=== PATIENT | female | born 1970 | race Caucasian/White ===

== ENCOUNTER → 2020-06-23 11:02 | Outpatient (CLI) | payer OTHER, SELFPAY ==
[2020-06-23 12:19] LABS: Alanine Aminotransferase 41 IU/L (<35); Albumin 4.6 g/dL (3.5-5.0); Albumin Globulin Ratio 1.4 (1.0-2.8); Alkaline Phosphatase 85 U/L (38-126); Aspartate Aminotransferase 36 IU/L (14-36); BUN Creatinine Ratio 23.2 (6-22); Bilirubin Total 0.5 mg/dL (0.2-1.3); Blood Urea Nitrogen 16 mg/dL (7-17); Calcium 10.2 mg/dL (8.4-10.2); Carbon Dioxide 29 mmol/L (22-32); Chloride 102 mmol/L (98-107); Cholesterol 259 mg/dL (140-199); Estimated Glomerular Filt Rate > 60.0 mL/min (>60); Globulin 3.4 g/dL (1.7-4.1); Glucose 94 mg/dL (70-100); HDL Cholesterol 62 mg/dL (40-60); HEMOLYSIS < 15 (0-50); LDL Cholesterol Calculated 170 mg/dL (<100); Potassium 4.1 mmol/L (3.4-5.1); Sodium 137 mmol/L (137-145); Triglycerides 136 mg/dL (35-150)
[2020-06-23 12:32] LABS: Vitamin D 25 Hydroxy (D3) 66.8 ng/mL (30.0-100.0)
[2020-06-23 12:34] LABS: Free T4, Direct Thyroxine 1.05 ng/dL (0.78-2.19)
[2020-06-23 12:48] LABS: Thyroid Stimulating Hormone 3.62 uIU/mL (0.47-4.68)
== END ==
PROVIDERS: PCP Registered Nurse; Referring Provider Registered Nurse; Visit Provider Registered Nurse
DX: Z00.00 Encounter for general adult medical examination without abnormal findings (principal); E78.5 Hyperlipidemia, unspecified; E03.9 Hypothyroidism, unspecified; E55.9 Vitamin D deficiency, unspecified
CPT/HCPCS: 36415; 80053; 80061; 82306; 84439; 84443

== ENCOUNTER → 2022-07-09 11:02 | Outpatient (CLI) | payer OTHER, SELFPAY ==
--- NOTE | 2022-07-09 11:04 | DI.MRI.S_ITS ---
PROCEDURE: MR WRIST RT WO CON INDICATIONS: Bilateral wrist pain, refractory to PT TECHNIQUE: Noncontrast coronal proton density fast spin echo and T2 fast spin echo with fat saturation; coronal 3-D gradient echo, axial T1 spin echo and T2 fast spin echo with fat saturation, sagittal T1 spin echo through the wrist. COMPARISON: None. FINDINGS: Image quality: Excellent. Bones and cartilage: The carpal bones are normally aligned. No bone marrow contusions or fractures. No evidence for avascular necrosis. Mild degenerative changes at the 1st carpometacarpal joint. Carpal ligaments: The scapholunate and lunotriquetral ligaments appear intact. On sagittal images, the pisohamate ligament appears intact. Triangular fibrocartilage complex: Mildly increased signal at the ulnar foveal attachment of the triangular fibrocartilage is suspicious for partial tearing. No definite full-thickness tear. No significant distal radioulnar joint effusion. Tendons and soft tissues: The carpal tunnel structures appear normal, including the median nerve. The ulnar nerve appears normal within Guyon's canal. Mild extensor carpi ulnaris tendinosis and tenosynovitis. Mild tendinosis of the first extensor compartment tendons. Small amount of fluid within the extensor digitorum tendon sheaths is suspicious for mild tenosynovitis. The remaining extensor tendon compartments demonstrate normal morphology, without pathologic tendon sheath fluid. 5 mm ganglion cyst is seen along the volar aspect of the radiocarpal joint. IMPRESSION: 1. Partial tearing of the ulnar foveal attachment of the triangular fibrocartilage. No definite full-thickness tear is seen. 2. Mild tendinosis and tenosynovitis of the extensor carpi ulnaris tendon. 3. Mild tenosynovitis of the extensor digitorum tendons in the 4th extensor compartment. 4. Mild tendinosis of the extensor pollicis brevis and abductor pollicis longus tendons. Approved by: Adilson Hernandez M.D. on 07/09/2022 at 14:32
== END ==
PROVIDERS: PCP Nurse Practitioner; Referring Provider Nurse Practitioner; Visit Provider Nurse Practitioner
DX: S63.591A Other specified sprain of right wrist, initial encounter (principal); M65.831 Other synovitis and tenosynovitis, right forearm; M25.531 Pain in right wrist; M25.532 Pain in left wrist
CPT/HCPCS: 73221

== ENCOUNTER → 2022-12-02 12:05 | Outpatient (CLI) | payer OTHER, SELFPAY ==
[2022-12-02 13:35] LABS: Add Manual Diff / Slide Review NO; Basophils Absolute Auto 0 /uL (0-100); Basophils Percent Auto 0.3 % (0-2); Eosinophils Absolute Auto 100 /uL (0-450); Eosinophils Percent Auto 1.4 % (2-4); Hematocrit 47.4 % (36-46); Hemoglobin 16.2 g/dL (12.0-16.0); Lymphocytes Absolute Auto 1400 /uL (1100-4500); Lymphocytes Percent Auto 14.9 % (25-40); Mean Corpuscular HGB Conc 34.3 % (30-36); Mean Corpuscular Hemoglobin 34.2 PG (26-34); Monocytes Absolute Auto 900 /uL (0-900); Monocytes Percent Auto 9.1 % (3-14); Neutrophils Absolute Auto 7000 /uL (1500-7000); Neutrophils Percent Auto 74.3 % (50-75); Platelet Count 185 X10^3/uL (150-400); Red Blood Cell Count 4.74 X10^6/uL (4.0-5.2); Red Cell Distribution Width 13.4 % (11.6-14.8); White Blood Cell Count 9.4 X10^3/uL (4.5-11.0)
[2022-12-02 13:45] LABS: Alanine Aminotransferase 35 IU/L (<35); Albumin 4.4 g/dL (3.5-5.0); Albumin Globulin Ratio 1.3 (1.0-2.8); Alkaline Phosphatase 82 U/L (38-126); Aspartate Aminotransferase 35 IU/L (14-36); BUN Creatinine Ratio 37.9 (6-22); Bilirubin Total 0.7 mg/dL (0.2-1.3); Blood Urea Nitrogen 25 mg/dL (7-17); Calcium 10.1 mg/dL (8.4-10.2); Carbon Dioxide 30 mmol/L (22-32); Chloride 100 mmol/L (98-107); Cholesterol 240 mg/dL (140-199); Estimated Glomerular Filt Rate > 60 mL/min (>60); Globulin 3.4 g/dL (1.7-4.1); Glucose 107 mg/dL (70-100); HDL Cholesterol 99 mg/dL (40-60); HEMOLYSIS < 15 (0-50); LDL Cholesterol Calculated 115 mg/dL (<100); Sodium 135 mmol/L (137-145); Total Protein 7.8 g/dL (6.3-8.2); Triglycerides 130 mg/dL (35-150); Uric Acid 3.9 mg/dL (2.5-6.2)
[2022-12-02 14:13] LABS: Thyroid Stimulating Hormone 3.09 uIU/mL (0.47-4.68)
[2022-12-02 15:24] LABS: Microalbumin Urine Random 6.3 mg/dL (0-1.6)
== END ==
PROVIDERS: PCP Nurse Practitioner; Referring Provider Nurse Practitioner; Visit Provider Nurse Practitioner
DX: Z00.00 Encounter for general adult medical examination without abnormal findings (principal); M25.531 Pain in right wrist
CPT/HCPCS: 36415; 80053; 80061; 82043; 82570; 84439; 84443; 84481; 84550; 85025

== ENCOUNTER → 2022-12-14 10:16 | Outpatient (CLI) | payer OTHER, SELFPAY ==
--- NOTE | 2022-12-14 10:17 | DI.MG.S_ITS ---
BILATERAL DIGITAL SCREENING MAMMOGRAM 3D/2D WITH CAD: 12/14/2022 CLINICAL: Routine screening. Default Baseline exam. Additional films were requested but not obtained. Both breasts are heterogeneously dense, which may obscure small masses (category c / 51-75% glandular tissue). Current study was also evaluated with a Computer Aided Detection (CAD) system. No significant masses, calcifications, or other findings are seen in either breast. IMPRESSION: NEGATIVE There is no mammographic evidence of malignancy. A 1 year screening mammogram is recommended. Based on the Tyrer Cuzick model (a risk assessment model) the patient's lifetime risk is 13.1% and her 10 year risk is 3.8%. According to the ACR, ACS, and NCCN guidelines, an annual breast MRI exam along with mammogram is recommended if the patient's lifetime risk is 20% or greater. This exam was interpreted at Station ID: [id number]. NOTE: For mammograms, a report in lay terms will be sent to the patient. Approximately 15% of breast malignancies will not be visualized mammographically. In the management of a palpable breast mass, a negative mammogram must not discourage biopsy of a clinically suspicious lesion. Electronically Signed By: Titi [email or web address]:12/16/2022 07:23:20 letter sent: Normal Exam ACR BI-RADS Category 1: Negative [id number]
== END ==
PROVIDERS: PCP Nurse Practitioner; Referring Provider Nurse Practitioner; Visit Provider Nurse Practitioner
DX: Z12.31 Encounter for screening mammogram for malignant neoplasm of breast (principal)
CPT/HCPCS: 77063; 77067

== ENCOUNTER → 2022-12-21 10:41 | Outpatient (CLI) | payer OTHER, SELFPAY ==
--- NOTE | 2022-12-21 10:42 | DI.MRI.S_ITS ---
PROCEDURE: MR LUMBAR SPINE WO CON INDICATIONS: worsening lower back pain with sciatica TECHNIQUE: Noncontrast sagittal T1 spin echo and T2 fast echo, sagittal STIR, and T2 fast spin echo through the lumbar spine. In cases with scoliosis, additional coronal T2 fast spin echo may be performed. COMPARISON: None. FINDINGS: Image quality: Excellent. Alignment and Curvature: Grade 1 anterolisthesis L4 on L5 secondary to pars defects. Slight leftward curvature of the lumbar spine. Bone Marrow: A reactive bone marrow changes about the L4-5 disc space. Spinal Cord: Conus medullaris terminates at the L1 level. Visualized cord demonstrates normal signal and size. Paraspinous Soft Tissues: No paravertebral masses. T12-L1: Normal appearance. L1-L2: Normal in appearance. L2-L3: Ligamentum flavum hypertrophy, mild facet hypertrophy, epidural lipomatosis. Very mild broad-based disc bulge. Mild bilateral neural foraminal narrowing. L3-L4: Ligamentum flavum hypertrophy and mild facet hypertrophy. Broad-based disc bulge. Mild bilateral neural foraminal narrowing. L4-L5: Posterior asymmetric disc bulge, ligamentum flavum hypertrophy, mild epidural lipomatosis. Severe right and moderate to severe left neural foraminal narrowing. L5-S1: Posterior asymmetric disc bulge with superimposed annular fissure. Mild ligamentum flavum hypertrophy. Mild facet hypertrophy. Mild left neural foraminal narrowing. IMPRESSION: Grade 1 anterolisthesis of L4 on L5 secondary to pars defects. Associated severe right and moderate to severe left neural foraminal narrowing. Multilevel degenerative disc disease, as above. Dictated by: Channing Garcia M.D. on 12/23/2022 at 9:21 Approved by: Channing Garcia M.D. on 12/23/2022 at 9:32
== END ==
PROVIDERS: PCP Nurse Practitioner; Referring Provider Nurse Practitioner; Visit Provider Nurse Practitioner
DX: M43.16 Spondylolisthesis, lumbar region (principal); M48.061 Spinal stenosis, lumbar region without neurogenic claudication; M51.36 Other intervertebral disc degeneration, lumbar region; M51.37 Other intervertebral disc degeneration, lumbosacral region; M54.50 Low back pain, unspecified; M79.606 Pain in leg, unspecified
CPT/HCPCS: 72148

== ENCOUNTER → 2023-01-14 16:18 | Outpatient (CLI) | payer OTHER, SELFPAY ==
[2023-01-14 18:26] LABS: Add Manual Diff / Slide Review NO; Basophils Absolute Auto 0 /uL (0-100); Basophils Percent Auto 0.3 % (0-2); Eosinophils Absolute Auto 300 /uL (0-450); Eosinophils Percent Auto 3.2 % (2-4); Hematocrit 45.8 % (36-46); Hemoglobin 15.8 g/dL (12.0-16.0); Lymphocytes Absolute Auto 1700 /uL (1100-4500); Lymphocytes Percent Auto 19.3 % (25-40); Mean Corpuscular HGB Conc 34.4 % (30-36); Mean Corpuscular Hemoglobin 34.1 PG (26-34); Mean Corpuscular Volume 99.3 fL (80-100); Monocytes Absolute Auto 900 /uL (0-900); Monocytes Percent Auto 10.4 % (3-14); Neutrophils Absolute Auto 5800 /uL (1500-7000); Neutrophils Percent Auto 66.8 % (50-75); Platelet Count 198 X10^3/uL (150-400); Red Blood Cell Count 4.62 X10^6/uL (4.0-5.2); Red Cell Distribution Width 13.5 % (11.6-14.8); White Blood Cell Count 8.7 X10^3/uL (4.5-11.0)
[2023-01-14 19:01] LABS: BUN Creatinine Ratio 23.9 (6-22); Blood Urea Nitrogen 17 mg/dL (7-17); Calcium 9.6 mg/dL (8.4-10.2); Carbon Dioxide 33 mmol/L (22-32); Chloride 103 mmol/L (98-107); Estimated Glomerular Filt Rate > 60 mL/min (>60); Glucose 76 mg/dL (70-100); HEMOLYSIS < 15 (0-50); Sodium 139 mmol/L (137-145)
[2023-01-15 03:36] LABS: Labcorp Hemoglobin (Hb) A1c 5.3 % (4.8-5.6)
== END ==
PROVIDERS: PCP Nurse Practitioner; Referring Provider Orthopaedic Surgery Orthopaedic Surgery of the Spine; Visit Provider Orthopaedic Surgery Orthopaedic Surgery of the Spine
DX: Z01.818 Encounter for other preprocedural examination (principal); R73.9 Hyperglycemia, unspecified; Z01.812 Encounter for preprocedural laboratory examination
CPT/HCPCS: 36415; 80048; 83036; 85025; 93005; 93010

== ENCOUNTER 2023-02-21 08:05 | Inpatient (IN) | payer OTHER, SELFPAY ==
[2023-02-07 08:17] VITALS: BMI 21.0
[2023-02-21] VITALS (14 sets, daily range): BP systolic 100–155; BP diastolic 59–99; PULSE 91–127; RESP 9–20; TEMP 36.3–37; O2SAT 93–99; BMI 21.0
--- NOTE | 2023-02-21 | DI.RAD.S_ITS ---
PROCEDURE: XR LUMBAR SPINE 2-3V INDICATIONS: L4-5 TLIF TECHNIQUE: 2 intraoperative views of the lumbar spine were acquired. COMPARISON: [facility], MR, MR LUMBAR SPINE WO CON, 12/21/2022, 10:52. FINDINGS: L4-L5 pedicle screw fixation with intervertebral body spacer. Hardware projects in the expected location. Improved anterolisthesis of L4 on L5. IMPRESSION: Intraoperative guidance provided. Dictated by: Mason Marte M.D. on 02/21/2023 at 14:53 Approved by: Mason Marte M.D. on 02/21/2023 at 14:55
[2023-02-21] MEDS: LACTATED RINGERS 1,000 ML 100 ML IV (08:23)
--- NOTE | 2023-02-21 09:03 | PM.PREOP ---
Pre-operative Note COVID-19 Criteria for continued procedure: Expected advancement of disease process, Possibility delay results in more complex future surgery or treatment, Increased loss of function, Continuing or worsening of significant or severe pain, Deterioration of the patient's condition or overall health and Delay expected to result in less-positive ultimate med/surg outcome Interval Note History & Physical reviewed/Exam performed by Physician: Yes Changes to H&P: No
[2023-02-21] MEDS: CEFAZOLIN 2 GM/100 ML PREMIX 100 ML IV ×2 (09:50→18:03)
--- NOTE | 2023-02-21 10:09 | SUR.OPER ---
Prone on spine table, head in foam head support, padded chest and pelvic supports, gel pad at knees, lower legs supported by pillows; nipples, genitalia and toes free of pressure, arms secured on foam padded arm boards at <90 degrees abduction. Tape over blanket at thigh secured to table.
[2023-02-21] MEDS: BUPIVACAINE 0.25% (PF) 60 ML, EPINEPHrine 0.15 MG INJ (10:34)
[2023-02-21] MEDS: BUPIVACAINE LIPOSOME 266 MG/20 ML VIAL INJ (10:35)
--- NOTE | 2023-02-21 12:11 | P.OP_ITS ---
Operative Date/Time/Diagnoses Date of procedure: 02/21/23 Time of procedure: 10:30 Pre-op diagnosis: 1. L4-5 spondylolisthesis 2. L4-5 spinal stenosis with radiculopathy Post-op diagnosis: same Procedure & Clinicians Procedure: 1. L4-5 Postero-lateral and posterior interbody fusion 2. L4-5 interbody cage placement. 3. L4-5 decompressive laminectomy with bilateral facetecomies 4. L4-5 Posterior non-segmental instrumentation 5. Decker of bone marrow from iliac crest 6. Utilization of microsurgical technique and operating microscope Same procedure as scheduled: Yes Indications: Patient has been having chronic back pain and worsening lumbar radiculopathy. Patient failed multiple conservative management with worsening pain weakness and numbness in her lower extremity. Patient has been having difficulty performing activity of daily living. After discussing risks benefits of treatment options, patient elected proceed with surgery. Surgeon: Meet Redmond Manager Report: Peace Foley Click Yes if Unassisted: No Anesthesia Type: General Operative Notes Closure Type: primary Specimen(s): none sent Prosthetic devices, grafts, tissues, transplants, or devices: Globus revolve screws, Rise cage Estimated Blood Loss (mL): 50 Blood products transfused: none Procedure in detail: Patient was seen in the preoperative area. Risks and benefits of the surgery was discussed with the patient. Informed consent was obtained from the patient and placed in the chart. Surgical site was marked. Patient was taken to the operative room. General anesthesia was administered. Prophylactic antibiotic was given to the patient less than 30 min before the incision was made. Patient was placed into a prone position on the Jax table. Patient's back was then prepped and draped in the sterile fashion. Time-out was performed at this time. Using AP and lateral C-arm imaging the interval between L4-5 was identified and marked on patient's back. A 2 inch incision 2 in from midline was made on the right side first. The fascia was incised in line with skin incision. Globus MARS retractors was placed inside the incision and docked onto the L4 lamina. Using microsurgical technique and operating microscope, a L4 laminectomy and L4- 5 facetectomy was performed using a Kerrison rongeur. The laminectomy and facetectomy was performed in order to decompress patient's cauda equina as well as the nerve roots exiting at the L4-5 level. The disc space at L4-5 was identified. And a total diskectomy was performed at L4-5 level. The endplates were decorticated using a rasp and shaver. The total diskectomy and decortication was performed at L4-5 level in order to to accomplish a L4-5 fusion. The local bone from the laminectomy and facetectomy was saved for local bone grafting. After the total diskectomy and decortication was completed, Trifecta bone graft material was combined with local bone that was harvested earlier. At this time, a separate skin is incision was made over the iliac crest. A Jamshidi needle was inserted into the iliac crest through a separate skin incision. 5 cc of bone marrow aspiration was obtained through the separate skin incision using a Jamshidi needle from the iliac crest. The bone marrow aspiration was combined with local bone and the Trifecta bone grafting material. The bone grafting material was placed into the L4-5 interbody space along with a expandable cage. The cage was expanded to its maximum height using the torque limiting screwdriver. At this time a mirror image incision was made on the left side. The fascia was incised in line with the skin incision. Globus MARS retractor was inserted and docked onto the L4-5 posterolateral gutter. Using the power drill, posterior- lateral decortication was performed at L4-5 level until bleeding cortical bone was identified. The remaining bone grafting material was placed into the L4-5 posterior lateral gutter he order to accomplish posterolateral fusion at the L4- 5 level. Using the double C-arm technique, pedicle screws were placed into the L4-5 pedicles bilaterally. This was done by placing the Jamshidi needle into the pedicles, then placing the guidewires over the Jamshidi needle, and finally placing the cannulated screws over the guidewires bilaterally. After the pedicle screws were placed, 2 titanium rods was locked into the heads of the pedicle screws using locking caps and torque limiting screwdriver. With threaded reducers were used to reduce the patient's spondylolisthesis and maintained using the hardware placed in the patient's L4 and L5 level. After all the hardware was placed, and confirmed with AP and lateral C-arm imaging, the wound was then irrigated with sterile normal saline and packed with Ray-Walter gauze for 3 min to accomplish hemostasis. After the gauze was removed the deep fascia was closed with #1 Vicryl suture. The subcutaneous layer was closed with 2-0 Vicryl. The skin was closed with skin brianna. Patient tolerated the procedure well. There were no complications. The Operation could not have been safely performed without compromising the technical result or length of the procedure, without the assistance of a skilled operating room surgical technician. The operating room surgical technician was medically necessary for proper positioning, retraction and manipulation of instruments, proper exposure, surgical preparation, and manipulation of tissue. Complications: none Post-operative Condition: stable Disposition: PACU Plan for aftercare: Admit to inpatient hospital
[2023-02-21] MEDS: LORazepam 2 MG/ML INJ 0.25 MG IV ×2 (12:29→12:44)
[2023-02-21] MEDS: HYDROMORPHONE 1 MG INJ IV ×2 (12:32→12:39)
[2023-02-21] MEDS: hydrOXYzine 50 MG/ML INJ 25 MG IM (12:35)
[2023-02-21] MEDS: fentaNYL 100 MCG/2 ML INJ IV ×2 (12:51→13:00)
--- NOTE | 2023-02-21 13:16 | SUR.PHASEI ---
Report called to
--- NOTE | 2023-02-21 13:29 | SUR.PHASEI ---
Patient transferred to the floor by TRICIA Michel with her belongings bag.
--- NOTE | 2023-02-21 14:21 | OT.IP.EVAL ---
Current Diagnoses Spondylolisthesis, lumbar region (02/21/23) Spinal stenosis, lumbosacral region (02/21/23) Surgery Performed Operation Date: 02/21/23 09:45 Actual Procedures p L4-5 TLIF - Meet Redmond MD Past Medical History (Last Reviewed 01/08/23 @ 08:23 by SUSY Wilson) Anxiety (~2009) Bilateral wrist pain Bulging lumbar disc Chronic back pain (~2012) Colon polyps (~2019) Depression (~2011) Epidural lipomatosis Foot pain (~2015) Foraminal stenosis of lumbar region Fractures (~2018) Hyperlipidemia Hypertrophy of ligamentum flavum Hypothyroidism (acquired) (~2017) Neural foraminal stenosis of lumbar spine Shoulder pain (~2019) SVT (supraventricular tachycardia) (~2016) Vitamin D deficiency Surgical History (Last Reviewed 01/08/23 @ 08:23 by SUSY Wilson) Anesthesia History of ankle surgery (~2018) History of cardiac radiofrequency ablation (~2018) Occupational Therapy Inpatient Evaluation/Re-Eval M1 PT/OT-IP Prior Functional Status Start: 02/21/23 14:28 Freq: NEEDED Status: Active Protocol: Document 02/21/23 13:45 [facility] (Rec: 02/21/23 14:51 [facility] [id number]) Medical Review Prior Functional Status Communication Independent. Mobility and Gait Pt states had difficulty to get out of bed and with sitting but able to walk without a device. Activities of Daily Living and IADL's Pt states had pain for ADL and IADL needs. Social History Household Members spouse Living Arrangements Mobile home Number of Floors (Floors) One Floor Number of Stairs To Enter/Railing? 3 steps with narrow bilateral rails. Home Environment Standard Height Toilet,Walk in Shower,Tub/Shower Home Equipment Four Wheel Walker,Straight Cane,Shower Seat with Backrest Additional Social History Comment Pt to be around to assist her. M2 OT-IP Current Condition Start: 02/21/23 14:28 Freq: Status: Active Protocol: Document 02/21/23 13:45 [facility] (Rec: 02/21/23 14:51 [facility] [id number]) Occupational Therapy Current Condition Current Condition Evaluation Date 02/21/23 Treatment Diagnosis S/P L4-5 TLIF Diagnosis Onset Date 02/21/23 Post Operative Precautions Lumbar Precautions Log Roll,No Twisting,Limit Bending,Lifting Restriction of 10 lbs,Gait Belt above Incisional Area M3 OT- IP Subjective and Pain Start: 02/21/23 14:28 Freq: Status: Active Protocol: Document 02/21/23 13:45 [facility] (Rec: 02/21/23 14:51 [facility] [id number]) OT- Subjective Occupational Therapy Visit Type Type Initial Evaluation Visit Start Time 13:43 Visit Stop Time 14:21 Total Visit Minutes 38 Occupational Therapy Visit Comments Patient Comments Pt wanting to use the BSC. Patient/Caregiver Goals To go home. OT Pain Assessment Pain When Pain Assessed At Rest Pain Present Pain Present Pain Reported Location back Intensity 9 Scale Used Numeric (0 - 10) M4 OT- IP ADL's Start: 02/21/23 14:28 Freq: Status: Active Protocol: Document 02/21/23 13:45 [facility] (Rec: 02/21/23 14:51 [facility] [id number]) OT RDC-Mpdc-Pkxomvc Comments OT Self-Feeding Comments No issues anticipated. OT ADL-Grooming Comments OT Grooming Comments Not performed. OT ADL-Oral Care Comments Oral Care Comments NOt performed. Educated best to hinge at her hips or just spit into a cup to best follow her back precautions. OT ADL-Dressing General Eval Lower Body Dressing Ability Maximum Assistance Areas Needing Assistance Socks Comments OT Dressing Comments Educated for need for assist or use of LB dressing equipment. OT ADL-Toileting General Evaluation Toileting Ability Standby Assistance,Minimal Assistance Comments OT Toileting Comments Pt is very tall and may benefit from RTS/BSC. Pt able to comfortably wipe and follow her precautions while sitting on the BSC. At this time as pt a little whoozy and would need CGA if standing to do LB dressing needs. OT ADL-Bathing Comments OT Bathing Comments Pt states has a built in seat in the shower. Pt may benefit from a shower chair as pt is very tall. M5 OT- IP IADL's Start: 02/21/23 14:28 Freq: Status: Active Protocol: Document 02/21/23 13:45 [facility] (Rec: 02/21/23 14:51 [facility] [id number]) OT-Instrumental Activities of Daily Living Deficits IADL Deficits Identified Deficits Home Safety Awareness Awareness of Need for Assistance at Home Good Awareness Home Safety Comments Pt is a little groggy and to have her assist her at home. M6 OT- IP Functional Cognition Start: 02/21/23 14:28 Freq: Status: Active Protocol: Document 02/21/23 13:45 [facility] (Rec: 02/21/23 14:51 [facility] [id number]) Cognitive Factors Limiting Selfcare Function Cognitive Ability Level of Alertness Alert,Drowsy Patient Orientation Name,Place,Situation Attention Span Ability Capable of Focused Attention, Capable of Sustained Attention Ability to Follow Commands Able to Follow One Step Commands Cognitive Comments Cognitive Assessment Comments Pt able to states and follow her back precautions for ADl and mobility needs. VC to push up from surfaces when coming to stand. OT- Vision and Hearing OT- Hearing Assessment OT- Hearing Assessment WFL OT- Vision Assessment Visual Acuity Glasses For Reading Visual Attentiveness WFL Occular Pursuits WFL M7 OT- IP Mobility and Balance Start: 02/21/23 14:28 Freq: Status: Active Protocol: Document 02/21/23 13:45 [facility] (Rec: 02/21/23 14:51 [facility] [id number]) OT- Bed Mobility Assessment Rolling Type of Rolling Roll to Left Level of Assistance Standby Assistance Supine to Sit Supine to Sit Assist Standby Assistance Sit to Supine Sit to Supine Assist Contact Guard Assistance Scooting Scooting to Edge of Bed Standby Assistance OT-Transfer Assessment Sit to and From Stand Sit to and from Stand Contact Guard Assistance Transfers Transfer Ability Contact Guard Assistance Technique Transfer Destination Bed,Bedside Commode Transfer Technique Stand Step Pivot Devices Transfer Assistive Devices Gait Belt,Front Wheeled Walker Comments Mobility Comments Pt SBA cues to educated on log rolling and IAN to help get her feet back into bed. CGA to stand to the FWW and able to transfer to the BSC. Pt complaining of being whoozy when sitting up to the edge of the bed. BP remained the same form supine and sitting. O2 at 96% on RA. OT- Balance Assessment Sitting Balance and Reactions Static Sitting Balance Ability Good Dynamic Sitting Balance Ability Fair Standing Balance and Reactions Static Standing Balance Ability Fair Dynamic Standing Balance Ability Fair M8 OT- IP Objective Assessments Start: 02/21/23 14:28 Freq: Status: Active Protocol: Document 02/21/23 13:45 [facility] (Rec: 02/21/23 14:51 [facility] [id number]) OT-Muscle Tone Assessment Muscle Tone WNL Yes M9 OT- IP Assessment and Plan Start: 02/21/23 14:28 Freq: Status: Active Protocol: Document 02/21/23 13:45 [facility] (Rec: 02/21/23 14:51 [facility] [id number]) OT Summary Assessment and Plan Potential Rehabilitation Potential Excellent Analytic Complexity at Evaluation Low Summary OT Impairments Pain,Strength,Balance, Functional Mobility,Grooming, Dressing,Toileting,Bathing, Toilet Transfers,Shower Transfers Progress Towards Goals Progressing Toward Goals Assessment Summary Pt low complexity and main barriers are pain, steps and coming up to stand from lower surfaces. Pt has a supportive to be able to assist her at home. Pt's daughter to be bringing her a 4ww, however at this time pt may need a FWW. Pt to go home when medically stable. Goals Grooming Goal Independent Dressing Goal Independent Toileting Goal Independent Bathing Goal Independent Toilet Transfer Goal Independent Shower Transfer Goal Independent Patient/Caregiver Education Goal Demonstrate Post-Op Precautions,Caregiver Independent Assisting Patient Days to Meet Goals 5 Frequency of Treatment Frequency Of Treatment Once a Day Treatment Plan OT Treatment Plan ADL Training,Functional Mobility,Patient/Family Education,Discharge Planning Discharge Recommendations OT Discharge Recommendations Home with Assistance Home Equipment Needs FWW?, shower chair, RTS versus BSC Transportation Needs at Discharge Private Vehicle
[2023-02-21] MEDS: OXYCODONE IR 10 MG TABLET PO ×3 (14:29→21:26)
[2023-02-21] MEDS: hydrOXYzine pamoate 25 MG CAPSULE PO (14:29)
[2023-02-21] MEDS: LACTATED RINGERS 1,000 ML 125 ML IV (14:30)
--- NOTE | 2023-02-21 15:10 | PT.IIE ---
Current Diagnoses Spondylolisthesis, lumbar region (02/21/23) Spinal stenosis, lumbosacral region (02/21/23) Surgery Performed Operation Date: 02/21/23 09:45 Actual Procedures p L4-5 TLIF - Meet Redmond MD Surgical History (Last Reviewed 01/08/23 @ 08:23 by SUSY Wilson) Anesthesia History of ankle surgery (~2019) History of cardiac radiofrequency ablation (~2018) Medical History (Last Reviewed 01/08/23 @ 08:23 by SUSY Wilson) Anxiety (~2009) Bilateral wrist pain Bulging lumbar disc Chronic back pain (~2012) Colon polyps (~2018) Depression (~2011) Epidural lipomatosis Foot pain (~2015) Foraminal stenosis of lumbar region Fractures (~2017) Hyperlipidemia Hypertrophy of ligamentum flavum Hypothyroidism (acquired) (~2017) Neural foraminal stenosis of lumbar spine Shoulder pain (~2019) SVT (supraventricular tachycardia) (~2016) Vitamin D deficiency Physical Therapy Inpatient Evaluation/Re-Eval M1 PT/OT-IP Prior Functional Status Start: 02/21/23 15:50 Freq: NEEDED Status: Active Protocol: Document 02/21/23 15:10 AB (Rec: 02/21/23 16:07 AB [email or web address]) Medical Review Prior Functional Status Medical History Reviewed Yes Communication able to make needs known Mobility and Gait pt stated that she is independent with all mobilities and ambulation without AD Activities of Daily Living and IADL's per OT note: Pt states had pain for ADL and IADL needs. Social History Household Members spouse Living Arrangements Mobile home Number of Floors (Floors) One Floor Number of Stairs To Enter/Railing? 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 Additional Social History Comment pt works in a daycare spouse Tanner will be able to assist pt M2 PT-IP Current Condition Start: 02/21/23 15:50 Freq: NEEDED Status: Active Protocol: Document 02/21/23 15:10 AB (Rec: 02/21/23 16:07 AB [email or web address]) Physical Therapy Current Condition Current Condition Evaluation Date 02/21/23 Treatment Diagnosis s/p L4-5 TLIF; difficulty in walking Onset Date 02/21/23 M3 PT-IP Subjective Start: 02/21/23 15:50 Freq: NEEDED Status: Active Protocol: Document 02/21/23 15:10 AB (Rec: 02/21/23 16:07 [email or web address]) Subjective Physical Therapy Visit Type Type Initial Evaluation Visit Start Time 15:10 Visit Stop Time 15:45 Total Visit Minutes 35 Number of BACON SLICER Visits 0 Physical Therapy Visit Comments Patient Comments agreeable to do PT Therapy Pain Assessment Pain When Pain Assessed At Rest Pain Present Pain Present Pain Reported Location back Intensity 8 Scale Used Numeric (0 - 10) Pain Management Techniques Apply Cold,Distraction, Modification of Treatment,Re- positioning,Timing of Activity with Medications M4 PT-IP Mobility and Gait Start: 02/21/23 15:50 Freq: NEEDED Status: Active Protocol: Document 02/21/23 15:10 AB (Rec: 02/21/23 16:07 [email or web address]) PT-Bed Mobility Assessment Rolling Type of Rolling Log Rolling Level of Assist Standby Assistance Supine to Sit Supine to Sit Standby Assistance Sit to Supine Sit to Supine Standby Assistance PT-Transfer Assessment Sit to and From Stand Sit to and from Stand Contact Guard Assistance, Minimal Assistance,1 Person Assistance,Use of Upper Extremities Equipment Transfer Assistive Device Gait Belt,Front Wheeled Walker Orthotic/Prosthetic Devices or Brace: No Transfers Transfer Destination Toilet Transfer Technique ambulated Transfer Ability Level of Assist Contact Guard Assistance,1 Person Assistance,Use of Upper Extremities Comments Mobility Comments pt supine. spouse arrived in pt's room and confirmed that he can provide 24/7 assist to pt if needed. pt able to recall her precautions and stated that she is aware of log roll bed mobility. BP: 129 /82, O2 sat 94% at RA HR: 101 instructed pt to sit up on EOB . pt initially was trying to get up from a supine position. reminded pt of her log roll bed mobility and completed SBA but with cues. pt able to sit on EOB SBA. completed sit to stand min A and cues and ambulated in room using FWW 20 ft. c/o increase pain with mobility. presents with slow paced gait with heavy UE use on FWW and trunk guarding. pt sat back on EOB and wanting to go back to bed but stated that she has to use the toilet first. initiated caregiver training and educated spouse on how to assist pt using safety belt. pt completed sit to stand with spouse assisting CGA and pt ambulated towards the toilet using FWW CGA. pt required assistance with LE dressing management. pt completed sit to stand from the toilet using grab bar and spouse assisting CGA. pt ambulated from the toilet towards the sink using FWW CGA ~ 20 ft. pt was able to maintain standing SBA to CGA leaning against the counter while completing handwashing. pt ambulated back to the bed using FWW CGA. educated spouse on how to use safety belt/ donning/doffing and spouse was able to don/ doff safety belt on pt. pt completed log roll sit to supine SBA and cues for techniques and safety. positioned pt in bed. call light and table placed within reach. caregiver training set up for tomorrow at 9 am. Gait Assessment Gait Gait Assistance Required: Contact Guard Assist Distance (Feet) 20 Able to Maintain Weight Bearing Status Yes During Gait Assistive Devices Assistive Device Gait Belt,Front Wheeled Walker Orthotic/Prosthetic Devices or Brace: No Gait Deviations General Gait Pattern Decreased Stride Length, Decreased Feet Clearance Factors Limiting Gait Function Factors Limiting Gait Function Decreased Activity Tolerance, Decreased Strength,Limited Range of Motion,Pain,Poor Balance,Poor Safety Awareness PT-Balance Assessment Sitting Balance and Reactions Static Sitting Balance Ability Normal Dynamic Sitting Balance Ability Good Standing Balance and Reactions Static Standing Balance Ability Fair Dynamic Standing Balance Ability Fair Device Used FWW M5 PT-IP Objective Assessments Start: 02/21/23 15:50 Freq: NEEDED Status: Active Protocol: Document 02/21/23 15:10 AB (Rec: 02/21/23 16:07 AB [email or web address]) Orientation Orientation/Cognition Level of Alertness Alert Orientation Name,Place,Situation Language Function Ability No Deficits Noted Safety Awareness Decreased Safety Awareness Memory Description Short Term Impaired Gross Range of Motion Lower Extremity ROM Assessment Within Functional Limits Strength Lower Extremity Strength Assessment Within Functional Limits Coordination Assessment Gross Coordination Gross Coordination WNL Sensation Assessment Sensation Gross Sensation WNL Muscle Tone Muscle Tone WNL Yes M6 PT-IP Treatment Start: 02/21/23 15:50 Freq: NEEDED Status: Active Protocol: Document 02/21/23 15:10 AB (Rec: 02/21/23 16:07 [email or web address]) Physical Therapy Treatment Education Education Provided Precautions,Weight Bearing Status,Safety M7 PT-IP Assessment and Plan Start: 02/21/23 15:50 Freq: NEEDED Status: Active Protocol: Document 02/21/23 15:10 AB (Rec: 02/21/23 16:07 AB [id number]) PT Summary Assessment and Plan Potential Rehabilitation Potential Fair Status of Condition at Evaluation Evolving Summary Impairments Pain,ROM,Strength,Balance, Coordination,Sensation,Tone, Cognition,Bed Mobility, Transfers,Gait,Activity Tolerance Assessment Summary pt is a 52 y/o female with chronic back pain and underwent L4-5 TLIF POD 0. pt requiring CGA to min A with mobility at this time using FWW but requires cues for techniques and safety. pt plans to go home and spouse to assist her. caregiver training set up for tomorrow at 9 am. pt will also have to complete stair climbing training prior to d/c. recommending use of FWW at this time and pt requested for FWW to be dispensed through the hospital. will request for FWW order and dispense on d/c. will continue to assess progress. Goals Bed Mobility Goal Independent Transfer Goal Independent,Front Wheeled Walker Gait Goal Independent,Front Wheel Walker Gait Distance 200 Other Goals up/down 3 steps B rail mod I Days to Meet Goals 5 Frequency of Treatment Frequency Of Treatment Twice a Day Treatment Plan Physical Therapy Treatment Plan Bed Mobility Training,Transfer Training,Gait Training, Therapeutic Exercise,Balance Retraining,Post Op Education, Discharge Planning,Hot or Cold Pack,Neuromuscular Re-ed, Coordination Retraining,Manual Therapy Precautions Lumbar Precautions Log Roll,No Twisting,Limit Bending,Lifting Restriction of 10 lbs,Gait Belt above Incisional Area Recommendations To Nursing Amount of Assist Needed 1 Person Assist Discharge Recommendations PT Discharge Recommendations Home with Assistance Equipment Needed for Home Before FWW Discharge Transportation Needs at Discharge Private Vehicle
[2023-02-21] MEDS: HYDROMORPHONE 0.5 MG INJ IV (16:19)
--- NOTE | 2023-02-21 17:19 | SUR.PHASEI ---
Called Calista Cadena CRNA in OR #[address] Redmond. Received call from Emily CLARKE regarding patients increased agitation with significant history of alcohol use and tobacco use. See order for one time dose of Lorazepam and nictotine patch. Dr Redmond to follow up after out of OR.
[2023-02-21] MEDS: NICOTINE 21 MG PATCH TOP (17:54)
[2023-02-21] MEDS: LORazepam 2 MG/ML INJ 1 MG IV (17:54)
--- NOTE | 2023-02-21 18:15 | PC.NURSE ---
Addendum entered by Radha Jain R.N. 02/21/23 18:39: Pt in own clothing. This RN offered hospital gown. Pt stated, No way. I'm keeping my own clothes on. Original Note: Day shift: Pt requested new RN; this RN overtook care. Pt A&Ox4, agitation present. Up to BSC SBA, pt reporting 8/10 pain in back, muscle spasms, and anxiety. Medication administered as ordered (See MAR). Bed alarm active, pulse oximetry attached and pt oxygenation 94%, VSS. Care ongoing. Will continue to monitor
--- NOTE | 2023-02-21 18:20 | PC.NURSE ---
@ 1645 this RN heard bed alarm in room 204. Immediately went to room to check on pt and found pt trying to get back into bed and throwing blankets around and talking to herself frustratingly. I asked her what happened and pt stated she dropped her water on the floor and tried to clean it up on her own but couldn't. I stated to pt that it was ok that the water fell on the floor and began to grab towels to clean up. Pt continued to talk about her frustration about not being able to be independent and this RN educated pt about safety measures for pt d/t being hooked up to continuous IV fluids, monitoring BP cuff, SCDs and the IV narcotics administered earlier therefore pt would be a high fall risk. Pt was becoming increasingly more agitated while this RN was educating and cleaning the water off the floor, and pt's voice was increasingly becoming louder and angrier in tone. This RN continued to educate and remind pt of safety measures, and pt started yelling at RN about her frustration and this RN raised her voice to pt to educate pt once again about safety measures and pt yelled at RN stating, I want a new nurse! You're fired! I want a new nurse!! This RN finished cleaning water off the floor. Pt was becoming more agitated and stating that RN was not being empathic and no bedside manners. This RN said to pt that they will find another RN for her and that yelling at the RN was disrespectful and inappropriate. Pt continued to yell at RN and demand for another RN. Staff outside the room could hear pt yelling. Float RN, Radha Nick took over care for pt. ornamental iron worker notified of RN change. This RN called OR staff to request a one time dose of Ativan for pt d/t increasing agitation. PLATER APPRENTICE notified MD and obtained new order. Med was administered as well as the new order for nicotine patch since pt's informed RN that pt was more agitated d/t not being able to smoke in the hospital. added more new orders to support pt's anxiety.
[2023-02-21] MEDS: MELATONIN 3 MG TABLET 9 MG PO (21:25)
[2023-02-21] MEDS: DOCUSATE 100 MG CAPSULE PO (21:25)
[2023-02-21] MEDS: CYANOCOBALAMIN (VITAMIN B-12) 500 MCG TABLET 1000 MCG PO (21:25)
[2023-02-21] MEDS: SENNOSIDES 8.6 MG TABLET 17.2 MG PO (21:25)
[2023-02-21] MEDS: diazePAM 5 MG TABLET PO (21:26)
[2023-02-22] VITALS (7 sets, daily range): BP systolic 113–134; BP diastolic 77–102; PULSE 76–88; RESP 16–18; TEMP 36.2–37.2; O2SAT 94–96
[2023-02-22] MEDS: OXYCODONE IR 10 MG TABLET PO ×7 (01:11→23:03)
[2023-02-22] MEDS: CEFAZOLIN 2 GM/100 ML PREMIX 100 ML IV (01:11)
[2023-02-22] MEDS: PANTOPRAZOLE DR 20 MG TABLET PO (05:22)
[2023-02-22] MEDS: HYDROMORPHONE 0.5 MG INJ IV ×5 (05:34→21:19)
[2023-02-22] MEDS: DOCUSATE 100 MG CAPSULE PO ×2 (08:20→21:19)
[2023-02-22] MEDS: polyethylene glycoL 3350 17 GM POWD.PACK PO (08:20)
[2023-02-22] MEDS: NICOTINE 21 MG PATCH TOP (08:20)
--- NOTE | 2023-02-22 08:58 | PT.IPTN ---
Current Diagnoses Spondylolisthesis, lumbar region (02/21/23) Spinal stenosis, lumbosacral region (02/21/23) Surgery Performed Operation Date: 02/21/23 09:45 Actual Procedures p L4-5 TLIF - Meet Redmond MD Physical Therapy Treatment Note M2 PT-IP Current Condition Start: 02/21/23 15:50 Freq: NEEDED Status: Active Protocol: Document 02/21/23 15:10 AB (Rec: 02/21/23 16:07 AB [email or web address]) Physical Therapy Current Condition Current Condition Evaluation Date 02/21/23 Treatment Diagnosis s/p L4-5 TLIF; difficulty in walking Onset Date 02/21/23 M3 PT-IP Subjective Start: 02/21/23 15:50 Freq: NEEDED Status: Active Protocol: Document 02/22/23 09:20 TS (Rec: 02/22/23 09:39 TS [id number]) Subjective Physical Therapy Visit Type Type Treatment Note Visit Start Time 08:58 Visit Stop Time 09:18 Total Visit Minutes 20 Notes Spouse present for caregiver training Number of ARTIFICIAL PEARL MAKER Visits 1 Physical Therapy Visit Comments Patient Comments Pt found resting in bed, reports having high pain, somewhat emotional and somewhat tearful. Therapy Pain Assessment Pain When Pain Assessed At Rest Pain Present Pain Present Pain Reported M4 PT-IP Mobility and Gait Start: 02/21/23 15:50 Freq: NEEDED Status: Active Protocol: Document 02/22/23 09:20 TS (Rec: 02/22/23 09:39 TS [id number]) PT-Bed Mobility Assessment Rolling Type of Rolling Log Rolling Level of Assist Standby Assistance Supine to Sit Supine to Sit Standby Assistance Sit to Supine Sit to Supine Standby Assistance PT-Transfer Assessment Sit to and From Stand Sit to and from Stand Standby Assistance,Use of Upper Extremities Equipment Transfer Assistive Device Gait Belt,Front Wheeled Walker Orthotic/Prosthetic Devices or Brace: No Comments Mobility Comments Pt recalled 3/3 spinal precautions prior to mobility. She performed logroll SBA and supine to sit SBA with BUE support and good awareness of her spinal precautions, spouse was educated on handplacement to assist pt if she needs. Spouse was instructed in and performed donning of gait belt . Sit to stand w/FWW SBA with BUE support on FWW to come into stanidng. Pt ambulated ~ 10' to restroom SBA w/FWW and slow emerging step thru gait. Sit to stand form toilet SBA, pt could don pants on own. She ambulated in hallway ~125' SBa with continued slow paced emerging step thru gait, reports some burning pain in R hip. She performed steps x3 with spouse CGA and B handrails ascending, SBA when descending, spouse was educated on proper handplacement on gait belt. Pt ambulated back to room, performed sit to supine SBA with good logroll technique. Pt was left back in bed with call light nearby, spouse in room, all needs met. Gait Assessment Gait Gait Assistance Required: Contact Guard Assist Distance (Feet) 135 Able to Maintain Weight Bearing Status Yes During Gait Assistive Devices Assistive Device Gait Belt,Front Wheeled Walker Orthotic/Prosthetic Devices or Brace: No Gait Deviations General Gait Pattern Decreased Stride Length, Decreased Feet Clearance Factors Limiting Gait Function Factors Limiting Gait Function Decreased Activity Tolerance, Decreased Strength,Limited Range of Motion,Pain,Poor Balance,Poor Safety Awareness Comments Gait Comments See mobility comments Stair Climbing Assessment Evaluation Level of Assist On Stairs Standby Assistance,Contact Guard Assistance,1 Person Assistance Devices Stair Climbing Assistive Devices Left Railing,Right Railing Technique/Endurance Stair Climbing Direction Ascend and Descend Stair Climbing Technique Step to Step Number of Steps Climbed 3 Comments Stair Climbing Comments See mobility comments PT-Balance Assessment Sitting Balance and Reactions Static Sitting Balance Ability Normal Dynamic Sitting Balance Ability Good Standing Balance and Reactions Static Standing Balance Ability Good Dynamic Standing Balance Ability Good Device Used FWW M5 PT-IP Objective Assessments Start: 02/21/23 15:50 Freq: NEEDED Status: Active Protocol: Document 02/21/23 15:10 AB (Rec: 02/21/23 16:07 AB [id number]) Orientation Orientation/Cognition Level of Alertness Alert Orientation Name,Place,Situation Language Function Ability No Deficits Noted Safety Awareness Decreased Safety Awareness Memory Description Short Term Impaired Gross Range of Motion Lower Extremity ROM Assessment Within Functional Limits Strength Lower Extremity Strength Assessment Within Functional Limits Coordination Assessment Gross Coordination Gross Coordination WNL Sensation Assessment Sensation Gross Sensation WNL Muscle Tone Muscle Tone WNL Yes M6 PT-IP Treatment Start: 02/21/23 15:50 Freq: NEEDED Status: Active Protocol: Document 02/22/23 09:20 TS (Rec: 02/22/23 09:39 TS [id number]) Physical Therapy Treatment Education Education Provided Precautions,Weight Bearing Status,Safety M7 PT-IP Assessment and Plan Start: 02/21/23 15:50 Freq: NEEDED Status: Active Protocol: Document 02/22/23 09:20 TS (Rec: 02/22/23 09:39 TS [id number]) PT Summary Assessment and Plan Potential Rehabilitation Potential Good Summary Impairments Pain,ROM,Strength,Balance, Coordination,Sensation,Tone, Cognition,Bed Mobility, Transfers,Gait,Activity Tolerance Progress Towards Goals Progressing Toward Goals Assessment Summary Pt is progressing well with her mobility this session. She is SBA for all bed mobility and has good awareness of her precautions. She progressed her gait to ~135' SBA with FWW , has no buckling or LOB. She progressed stairs to x3 with CGA from spouse ascending and SBA for decending with B handrail support. Spouse was intructed in assisting pt with bed mobility, donning of gait belt, gait and step sequencing. Pt would like to stay one more night due to her high level of pain, pt was tearful from pain while performing mobility. PT is recommending return home w/ assist from spouse. Goals Bed Mobility Goal Independent Transfer Goal Independent,Front Wheeled Walker Gait Goal Independent,Front Wheel Walker Gait Distance 200 Other Goals up/down 3 steps B rail mod I Days to Meet Goals 5 Frequency of Treatment Frequency Of Treatment Twice a Day Treatment Plan Physical Therapy Treatment Plan Bed Mobility Training,Transfer Training,Gait Training, Therapeutic Exercise,Balance Retraining,Post Op Education, Discharge Planning,Hot or Cold Pack,Neuromuscular Re-ed, Coordination Retraining,Manual Therapy Precautions Lumbar Precautions Log Roll,No Twisting,Limit Bending,Lifting Restriction of 10 lbs,Gait Belt above Incisional Area Recommendations To Nursing Amount of Assist Needed Standby Assistance Discharge Recommendations PT Discharge Recommendations Home with Assistance Equipment Needed for Home Before FWW Discharge Transportation Needs at Discharge Private Vehicle
--- NOTE | 2023-02-22 10:15 | P.DS_ITS ---
History of Present Illness History of Present Illness Chief complaint: Translaminar Interbody Fusion/Laminotomy 02/21 Narrative: Patient is resting comfortably in bed this morning. She states she worked with Physical therapy this morning and it went well. Patient is complaining of low back pain, does get relief with medication. Denies numbness and tingling to the distal extremities, denies nausea or vomiting. Significant other is at bedside. Discharge Providers Provider Date of admission: 02/21/23 08:05 Discharge Date: 02/22/23 Primary care physician: SUSY Wilson Consults: 02/21/23 13:45 Consult to Occupational Therapy Evaluate & Treat Comment: Physician Instructions: Evaluate and treat Consult to Physical Therapy Evaluate & Treat Comment: Physician Instructions: Evaluate and Treat Discharge provider: Peace Foley PA-C Summary Hospital Course Discharge Diagnosis: Status post 1 level TLIF Hospital Course: Operative Date/Time/Diagnoses Date of procedure: 02/21/23 Time of procedure: 10:30 Pre-op diagnosis: 1. L4-5 spondylolisthesis 2. L4-5 spinal stenosis with radiculopathy Post-op diagnosis: same Procedure & Clinicians Procedure: 1. L4-5 Postero-lateral and posterior interbody fusion 2. L4-5 interbody cage placement. 3. L4-5 decompressive laminectomy with bilateral facetecomies 4. L4-5 Posterior non-segmental instrumentation 5. [place] of bone marrow from iliac crest 6. Utilization of microsurgical technique and operating microscope Same procedure as scheduled: Yes Indications: Patient has been having chronic back pain and worsening lumbar radiculopathy. Patient failed multiple conservative management with worsening pain weakness and numbness in her lower extremity.? Patient has been having difficulty performing activity of daily living.? After discussing risks benefits of treatment options, patient elected proceed with surgery. Surgeon: Meet Redmond Account Resolution Specialist: Peace Foley Click Yes if Unassisted: No Anesthesia Type: General Operative Notes Closure Type: primary Specimen(s): none sent Prosthetic devices, grafts, tissues, transplants, or devices: Globus revolve screws, Rise cage Estimated Blood Loss (mL): 50 Blood products transfused: none Exam Vital Signs (past 8 hours): - 02/22/23 04:45 02/22/23 06:17 02/22/23 08:24 Temperature 97.5 F L 97.5 F L 97.5 F L Pulse Rate 76 76 81 Respiratory Rate 16 17 18 Blood Pressure 134/89 134/102 H 125/87 Pulse Oximetry 96 96 96 Oxygen Flow Rate 0 0 0 Oxygen Delivery Method Room Air Oxygen Flow Rate 0 Narrative Exam Narrative: 52-year-old female. Awake, alert, and oriented. Lumbar dressing clean, dry, and intact. Strength and sensation intact to bilateral lower extremities. Bilateral calf soft, compressible, nontender with no palpable cords or masses. PENDING SALE TO [facility] Medical History Anxiety (~2009) Bilateral wrist pain Bulging lumbar disc Chronic back pain (~2012) Colon polyps (~2018) Depression (~2011) Epidural lipomatosis Foot pain (~2015) Foraminal stenosis of lumbar region Fractures (~2017) Hyperlipidemia Hypertrophy of ligamentum flavum Hypothyroidism (acquired) (~2017) Neural foraminal stenosis of lumbar spine Shoulder pain (~2019) SVT (supraventricular tachycardia) (~2016) Vitamin D deficiency Surgical History Anesthesia History of ankle surgery (~2018) History of cardiac radiofrequency ablation (~2017) Family History Father Cirrhosis Mother History of heart disease Brother History of heart disease Family/Other Breast cancer Social History household members: spouse Smoking Status: Current every day smoker alcohol intake: current Discharge Assessment & Plan Assessment and Plan Assessment: Patient is progressing as expected following 1 level TLIF, postop day 1 Plan of Treatment: Discharge to home with assistance from significant other when safe and cleared by physical therapy. Continue multimodal pain regimen. Follow up with Orthopedics 2 weeks after surgery. Spine precautions. Discharge Plan Discharge Plan Patient Disposition: Home Provider Discharge Comment: Discharge home with assistance from spouse when safe and cleared by Physical therapy Discharge orders & Medications Prescriptions: New oxycodone 10 mg Tablet 5 mg PO Q3H PRN (Reason: Pain, Severe (7-10)) Qty: 40 0RF hydroxyzine pamoate 25 mg Capsule 25 mg PO Q4HR PRN (Reason: Muscle Spasm) Qty: 40 0RF Continued varenicline [Chantix Starting Month Box] 0.5 mg (11)- 1 mg (42) tablets,dose pack See Rx Instructions PO PER PKG DIR Qty: 53 0RF Rx Instructions: PO PER PKG DIR tizanidine 2 mg tablet 2 mg PO Q8H PRN (Reason: muscle spasticity) Qty: 20 1RF Rx Instructions: Take 1 tab by mouth up to 3x/day as needed for muscle spasms diclofenac sodium 75 mg tablet,delayed release (DR/EC) 75 mg PO BID Qty: 60 2RF acetaminophen [Tylenol Arthritis Pain] 650 mg tablet extended release 650 mg PO Q12H simethicone [Gas-X Ultra-Strength] 180 mg Capsule 180 mg PO PRN PRN (Reason: Abdominal Distention) cyanocobalamin (vitamin B-12) [Vitamin B-12] 1,000 mcg Tablet 1,000 mcg PO BEDTIME omeprazole 20 mg Tablet,Delayed Release (Dr/Ec) 20 mg PO PRN PRN (Reason: Acid Reflux) magnesium glycinate 100 mg Tablet 200 mg PO DAILY melatonin 10 mg Tablet 10 mg PO BEDTIME PRN (Reason: Sleep) gabapentin 100 mg capsule 200 mg PO BEDTIME Rx Instructions: Take 1 tab by mouth at bedtime, ok to increase by 100mg on consecutive nights for max dose 300mg/24 hours Discontinued hydrocodone-acetaminophen 5-325 mg tablet 2 tab PO TID PRN (Reason: severe pain (scale score 7-10)) Qty: 90 0RF Rx Instructions: Take 1-2 tabs up to 3x/day as needed for severe pain. Follow up/Referrals: Madiha Gomez ARNP [Primary Care Provider] - Peace Foley PA-C [Advanced Commercial Real Estate Assistant] - Meet Redmond MD [Physician] - 2 Weeks Diet/Activity/Treatments Diet: Diet as Tolerated Activity: Up and walking as tolerated. No deep bending, twisting, lifting over 10 pounds Skin/Wound/Dressing Care Report to your healthcare provider any signs of infection, such as:: chills, fever, night sweats, unusual drainage and unusual redness Dressing: Keep dressing clean and dry. May remove if it becomes soiled and replace with clean bandage or gauze. Visit Report/Discharge Packet Instructions: DI for Transforaminal Lumbar Interbody Fusion Stand Alone Forms: Patient Portal/API, Stroke Signs & Symptoms, Surgery Discharge Discharge Data Primary Care Provider: Madiha Gomez
--- NOTE | 2023-02-22 10:19 | CM.DANOTE ---
Initial DCP Assessment Note Pt is a 52 yo female, resident of [place], now POD#[address] Redmond PCP: Madiha Gomez Payer: [employer] Reviewed chart, pt discussed in multidisciplinary rounds this morning. Therapy has cleared pt for return home w/family to assist and pt has planned for home, DC order from Ortho has already been initiated this morning. No barriers identified at this time to patient's safe discharge home w/family to assist; close outpatient f/u recommended. MARCOS Morales Discharge Planning/Care Management CM Discharge Assessment Start: 02/22/23 10:16 Freq: Status: Active Protocol: Document 02/22/23 10:16 CODEY (Rec: 02/22/23 10:18 CODEY [id number]) Discharge Planning Assessment Assigned Processing [employer] Supervisor MARCOS Damian DPOA/Assigned Designee Name Tanner Huerta, spouse Contact Information [phone] Advance Directives? No History Provided By Patient,Significant Other Prior Living Arrangements Mobile home Household Members spouse Type of transporation used prior to Drives own vehicle admit Independent with ADL's Yes Is patient alert and oriented? Yes Patient/Family Preference OP PT Therapy Barriers to Discharge No Discharge Plan Home Transportation Arrangement Spouse Referrals Initiated None needed
[2023-02-22] MEDS: ACETAMINOPHEN 325 MG TABLET 650 MG PO ×2 (14:03→21:33)
[2023-02-22] MEDS: hydrOXYzine pamoate 25 MG CAPSULE PO ×2 (14:03→21:21)
--- NOTE | 2023-02-22 15:12 | PT-IP ANOTE ---
Pt reports having been up walking in halls this afternoon, she would like to rest at this time. PT will check back in with pt tomorrow morning.
[2023-02-22] MEDS: SENNOSIDES 8.6 MG TABLET 17.2 MG PO (21:19)
[2023-02-22] MEDS: GABAPENTIN 100 MG CAPSULE 200 MG PO (21:19)
[2023-02-22] MEDS: CYANOCOBALAMIN (VITAMIN B-12) 500 MCG TABLET 1000 MCG PO (21:31)
[2023-02-22] MEDS: ONDANSETRON 4 MG ODT SL (23:04)
[2023-02-23 00:55] VITALS: BP 100/60; PULSE 81; RESP 16; TEMP 37.1; O2SAT 96
[2023-02-23] MEDS: HYDROMORPHONE 0.5 MG INJ IV ×2 (02:32→06:14)
[2023-02-23] MEDS: hydrOXYzine pamoate 25 MG CAPSULE PO ×2 (02:36→08:41)
[2023-02-23] MEDS: OXYCODONE IR 10 MG TABLET PO ×3 (04:11→11:51)
[2023-02-23] MEDS: ACETAMINOPHEN 325 MG TABLET 650 MG PO ×2 (04:11→11:51)
[2023-02-23 06:00] VITALS: BP 116/78; PULSE 83; RESP 18; TEMP 36.6; O2SAT 93
[2023-02-23] MEDS: PANTOPRAZOLE DR 20 MG TABLET PO (06:24)
[2023-02-23 08:12] VITALS: BP 102/70; PULSE 85; RESP 18; TEMP 36.6; O2SAT 94
[2023-02-23] MEDS: NICOTINE 21 MG PATCH TOP (08:41)
[2023-02-23] MEDS: DOCUSATE 100 MG CAPSULE PO (08:41)
--- NOTE | 2023-02-23 09:02 | PT.IPTN ---
Current Diagnoses Spondylolisthesis, lumbar region (02/21/23) Spinal stenosis, lumbosacral region (02/21/23) Surgery Performed Operation Date: 02/21/23 09:45 Actual Procedures p L4-5 TLIF - Meet Redmond MD Physical Therapy Treatment Note M2 PT-IP Current Condition Start: 02/21/23 15:50 Freq: NEEDED Status: Active Protocol: Document 02/21/23 15:10 AB (Rec: 02/21/23 16:07 AB [id number]) Physical Therapy Current Condition Current Condition Evaluation Date 02/21/23 Treatment Diagnosis s/p L4-5 TLIF; difficulty in walking Onset Date 02/21/23 M3 PT-IP Subjective Start: 02/21/23 15:50 Freq: NEEDED Status: Active Protocol: Document 02/23/23 09:35 AB(2) (Rec: 02/23/23 09:44 AB(2) [id number]) Subjective Physical Therapy Visit Type Type Treatment Note Visit Start Time 09:02 Visit Stop Time 09:33 Total Visit Minutes 31 Number of JACQUARD LOOM CARD CHANGER Visits 1 Physical Therapy Visit Comments Patient Comments The pt reports she continues to have a lot of pain, and states she didn't sleep well last night because of having 9 -10/10 pain. However, she is agreeable to PT this morning. Therapy Pain Assessment Pain When Pain Assessed At Rest Pain Present Pain Present Pain Reported Location back Intensity 8 Scale Used Numeric (0 - 10) Description Burning,Sharp Pain Behaviors Facial Grimacing,Guarding, Wincing Pain Management Techniques Re-positioning,Timing of Activity with Medications M4 PT-IP Mobility and Gait Start: 02/21/23 15:50 Freq: NEEDED Status: Active Protocol: Document 02/23/23 09:35 AB(2) (Rec: 02/23/23 09:44 AB(2) [id number]) PT-Bed Mobility Assessment Rolling Type of Rolling Log Rolling Level of Assist Independent Supine to Sit Supine to Sit Independent Sit to Supine Sit to Supine Independent Scooting Scooting to Edge of Bed Independent Scooting Up and Down in Bed Independent PT-Transfer Assessment Sit to and From Stand Sit to and from Stand Standby Assistance,Use of Upper Extremities Equipment Transfer Assistive Device Gait Belt,Front Wheeled Walker Transfers Transfer Destination Bed,Chair Transfer Technique Stand Step Pivot Transfer Ability Level of Assist Standby Assistance,1 Person Assistance,Use of Upper Extremities Gait Assessment Gait Gait Assistance Required: Standby Assistance,1 Person Assist Distance (Feet) 250 Assistive Devices Assistive Device Gait Belt,Front Wheeled Walker Gait Deviations General Gait Pattern Decreased Stride Length Factors Limiting Gait Function Factors Limiting Gait Function Pain Stair Climbing Assessment Comments Stair Climbing Comments Not performed today due to pain and fatigue. PT-Balance Assessment Sitting Balance and Reactions Static Sitting Balance Ability Normal Dynamic Sitting Balance Ability Normal Standing Balance and Reactions Static Standing Balance Ability Normal Dynamic Standing Balance Ability Good M5 PT-IP Objective Assessments Start: 02/21/23 15:50 Freq: NEEDED Status: Active Protocol: Document 02/21/23 15:10 AB (Rec: 02/21/23 16:07 AB [id number]) Orientation Orientation/Cognition Level of Alertness Alert Orientation Name,Place,Situation Language Function Ability No Deficits Noted Safety Awareness Decreased Safety Awareness Memory Description Short Term Impaired Gross Range of Motion Lower Extremity ROM Assessment Within Functional Limits Strength Lower Extremity Strength Assessment Within Functional Limits Coordination Assessment Gross Coordination Gross Coordination WNL Sensation Assessment Sensation Gross Sensation WNL Muscle Tone Muscle Tone WNL Yes M6 PT-IP Treatment Start: 02/21/23 15:50 Freq: NEEDED Status: Active Protocol: Document 02/23/23 09:35 AB(2) (Rec: 02/23/23 09:44 AB(2) [id number]) Physical Therapy Treatment Education Education Provided Safety Brace Education Patient Other Treatments Other Treatment Performed Upon returning to room after ambulating 250ft with FWW and SBA, the pt reports feeling lightheaded. She sat in chair, where BP was 99/64 mmHg. After a few minutes of sitting , the pt reports feeling better, however BP remained at 96/64 mmHg. The pt then transferred from chair to bed with FWW and SBA, and demonstrated good independent log roll technique to return to supine. BP was reassessed at 105/63, with improved symptoms. At end of session, all of the pt's needs were met , call light was within reach and is in room at bedside. M7 PT-IP Assessment and Plan Start: 02/21/23 15:50 Freq: NEEDED Status: Active Protocol: Document 02/23/23 09:35 AB(2) (Rec: 02/23/23 09:44 AB(2) [id number]) PT Summary Assessment and Plan Potential Rehabilitation Potential Good Status of Condition at Evaluation Stable Summary Impairments Pain,Transfers,Gait,Activity Tolerance Progress Towards Goals Progressing Toward Goals Assessment Summary The pt demonstrates an improved ability to perform bed mobility independently, albeit with continued pain. She is also able to perform STS and transfers with good form, though has difficulty with lower surfaces again due to pain levels. The pt was able to ambulate with 250ft with FWW and SBA, demonstrating improved step through gait and proper use of FWW. No LOB or unsteadiness is noted, however the pt reports increased LBP that she describes as sharp and burning but that these symptoms are like her symptoms prior to surgery. Of note, the pt reported lightheadedness upon returning to room after bout of ambulation, as detailed above. The pt was educated on the importance of activity to help improve her level of function. PT continues to recommend discharge to home with assistance. Precautions Lumbar Precautions Log Roll,No Twisting,Limit Bending,Lifting Restriction of 10 lbs,Gait Belt above Incisional Area Recommendations To Nursing Amount of Assist Needed Standby Assistance Discharge Recommendations PT Discharge Recommendations Home with Assistance Transportation Needs at Discharge Private Vehicle
--- NOTE | 2023-02-23 11:45 | PM.DS.1 ---
History of Present Illness History of Present Illness Date Patient Seen: 02/23/23 Chief complaint: TLIF Narrative: Patient is resting comfortably in bed this morning. She states she feels better than yesterday. Patient is complaining of low back pain, does get relief with medication. Denies numbness and tingling to the distal extremities, denies nausea or vomiting. She states she feels confident going home today. Discharge Providers Provider Date of admission: 02/21/23 08:05 Discharge Date: 02/23/23 Primary care physician: SUSY Wilson Consults: 02/21/23 13:45 Consult to Occupational Therapy Evaluate & Treat Comment: Physician Instructions: Evaluate and treat Consult to Physical Therapy Evaluate & Treat Comment: Physician Instructions: Evaluate and Treat Discharge provider: Peace Foley PA-C Summary Hospital Course Discharge Diagnosis: Status post TLIF Hospital Course: Operative Date/Time/Diagnoses Date of procedure: 02/21/23 Time of procedure: 10:30 Pre-op diagnosis: 1. L4-5 spondylolisthesis 2. L4-5 spinal stenosis with radiculopathy Post-op diagnosis: same Procedure & Clinicians Procedure: 1. L4-5 Postero-lateral and posterior interbody fusion 2. L4-5 interbody cage placement. 3. L4-5 decompressive laminectomy with bilateral facetecomies 4. L4-5 Posterior non-segmental instrumentation 5. [place] of bone marrow from iliac crest 6. Utilization of microsurgical technique and operating microscope Same procedure as scheduled: Yes Indications: Patient has been having chronic back pain and worsening lumbar radiculopathy. Patient failed multiple conservative management with worsening pain weakness and numbness in her lower extremity.? Patient has been having difficulty performing activity of daily living.? After discussing risks benefits of treatment options, patient elected proceed with surgery. Surgeon: Meet Redmond Pest Control Chemical Technician: Peace Foley Click Yes if Unassisted: No Anesthesia Type: General Operative Notes Closure Type: primary Specimen(s): none sent Prosthetic devices, grafts, tissues, transplants, or devices: Globus revolve screws, Rise cage Estimated Blood Loss (mL): 50 Blood products transfused: none Exam Vital Signs (past 8 hours): - 02/23/23 06:00 02/23/23 08:12 Temperature 97.9 F 97.9 F Pulse Rate 83 85 Respiratory Rate 18 18 Blood Pressure 116/78 102/70 Pulse Oximetry 93 94 Oxygen Flow Rate 0 0 Oxygen Delivery Method Room Air Oxygen Flow Rate 0 PFSH Medical History Anxiety (~2009) Bilateral wrist pain Bulging lumbar disc Chronic back pain (~2012) Colon polyps (~2018) Depression (~2011) Epidural lipomatosis Foot pain (~2015) Foraminal stenosis of lumbar region Fractures (~2017) Hyperlipidemia Hypertrophy of ligamentum flavum Hypothyroidism (acquired) (~2017) Neural foraminal stenosis of lumbar spine Shoulder pain (~2019) SVT (supraventricular tachycardia) (~2016) Vitamin D deficiency Surgical History Anesthesia History of ankle surgery (~2018) History of cardiac radiofrequency ablation (~2017) Family History Father Cirrhosis Mother History of heart disease Brother History of heart disease Family/Other Breast cancer Social History household members: spouse Smoking Status: Current every day smoker alcohol intake: current Discharge Assessment & Plan Assessment and Plan Assessment: Patient is progressing as expected following 1 level TLIF, postop day 2. Pain is better managed with medication at this time. Plan of Treatment: Plan to discharge to home today with significant other. Continue multimodal pain regimen, continue spine precautions. Follow up with Orthopedics in 2 weeks. Discharge Plan Discharge Plan Patient Disposition: Home Provider Discharge Comment: Discharge home with assistance from spouse when safe and cleared by Physical therapy Discharge orders & Medications Prescriptions: New hydroxyzine pamoate 25 mg Capsule 25 mg PO Q4HR PRN (Reason: Muscle Spasm) Qty: 40 0RF oxycodone 10 mg Tablet 5 mg PO Q3H PRN (Reason: Pain, Severe (7-10)) Qty: 40 0RF Continued varenicline [Chantix Starting Month Box] 0.5 mg (11)- 1 mg (42) tablets,dose pack See Rx Instructions PO PER PKG DIR Qty: 53 0RF Rx Instructions: PO PER PKG DIR tizanidine 2 mg tablet 2 mg PO Q8H PRN (Reason: muscle spasticity) Qty: 20 1RF Rx Instructions: Take 1 tab by mouth up to 3x/day as needed for muscle spasms diclofenac sodium 75 mg tablet,delayed release (DR/EC) 75 mg PO BID Qty: 60 2RF acetaminophen [Tylenol Arthritis Pain] 650 mg tablet extended release 650 mg PO Q12H simethicone [Gas-X Ultra-Strength] 180 mg Capsule 180 mg PO PRN PRN (Reason: Abdominal Distention) cyanocobalamin (vitamin B-12) [Vitamin B-12] 1,000 mcg Tablet 1,000 mcg PO BEDTIME omeprazole 20 mg Tablet,Delayed Release (Dr/Ec) 20 mg PO PRN PRN (Reason: Acid Reflux) magnesium glycinate 100 mg Tablet 200 mg PO DAILY melatonin 10 mg Tablet 10 mg PO BEDTIME PRN (Reason: Sleep) gabapentin 100 mg capsule 200 mg PO BEDTIME Rx Instructions: Take 1 tab by mouth at bedtime, ok to increase by 100mg on consecutive nights for max dose 300mg/24 hours Discontinued hydrocodone-acetaminophen 5-325 mg tablet 2 tab PO TID PRN (Reason: severe pain (scale score 7-10)) Qty: 90 0RF Rx Instructions: Take 1-2 tabs up to 3x/day as needed for severe pain. Follow up/Referrals: Madiha Gomez ARNP [Primary Care Provider] - Peace Foley PA-C [Advanced Chief Resource Officer] - Meet Redmond MD [Physician] - 2 Weeks Diet/Activity/Treatments Diet: Diet as Tolerated Activity: Up and walking as tolerated. No deep bending, twisting, lifting over 10 pounds Skin/Wound/Dressing Care Report to your healthcare provider any signs of infection, such as:: chills, fever, night sweats, unusual drainage and unusual redness Dressing: Keep dressing clean and dry. May remove if it becomes soiled and replace with clean bandage or gauze. Visit Report/Discharge Packet Instructions: DI for Transforaminal Lumbar Interbody Fusion Stand Alone Forms: Patient Portal/API, Stroke Signs & Symptoms, Surgery Discharge Discharge Data Primary Care Provider: Madiha Gomez
[2023-02-23] MEDS: diazePAM 5 MG TABLET PO (11:52)
[2023-02-23 12:07] VITALS: BP 96/66; PULSE 83; RESP 17; TEMP 36.8; O2SAT 92
--- NOTE | 2023-02-23 13:42 | PC.NURSE ---
Discharge education given to pt and spouse, patient verbalized understanding, all questions answered. IV removed. No items locked in safe, all belongings are with patient. This RN escorted patient via wheelchair to private vehicle.
== END 2023-02-23 13:00 | disposition home or self-care (01) | DRG 455 ==
PROVIDERS: Admitting Provider Orthopaedic Surgery Orthopaedic Surgery of the Spine; PCP Nurse Practitioner; Referring Provider Orthopaedic Surgery Orthopaedic Surgery of the Spine; Visit Provider Orthopaedic Surgery Orthopaedic Surgery of the Spine
PROC: 0SG00AJ Fusion of Lumbar Vertebral Joint with Interbody Fusion Device, Posterior Approach, Anterior Column, Open Approach (ICD-10-PCS; principal; 2023-02-21 09:45)
DX: M43.16 Spondylolisthesis, lumbar region (principal); M48.061 Spinal stenosis, lumbar region without neurogenic claudication; G89.29 Other chronic pain; F17.200 Nicotine dependence, unspecified, uncomplicated; M54.16 Radiculopathy, lumbar region
CPT/HCPCS: 36415; 72100; 76000; 97116; 97162; 97165; 97530; 97535; C1713; C9290; J0171; J0330; J0690; J1100; J1170; J2060; J2405; J2704; J3010; J3410

== ENCOUNTER 2023-05-14 15:02 | Emergency (ER) | payer OTHER, SELFPAY ==
[2023-02-21 08:08] VITALS: BMI 21.0
--- NOTE | 2023-05-14 15:05 | DI.RAD.S_ITS ---
PROCEDURE: XR PELVIS 1-2V INDICATIONS: sacral pain TECHNIQUE: 1 view(s) of the pelvis acquired. COMPARISON: None. FINDINGS: Bones: No fractures or dislocations. No suspicious bony lesions. Soft tissues: Visualized bowel gas pattern is normal. No suspicious soft tissue calcifications. Intrauterine device. Lower lumbar fusion hardware. IMPRESSION: No acute fracture. No osseous lesion. If symptoms and/or clinical suspicion for pathology persist, further assessment with repeat, or advanced imaging (e.g., CT, MRI, or bone scan) may be helpful for further assessment. Dictated by: Janel Gunter M.D. on 05/14/2023 at 15:55 Approved by: Janel Gunter M.D. on 05/14/2023 at 15:56
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
[2023-05-14 15:07] VITALS: BP 172/103; PULSE 94; RESP 16; TEMP 36.5; O2SAT 96; BMI 21.5
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
== END 2023-05-14 16:12 | disposition home or self-care (01) ==
PROVIDERS: Emergency Provider Emergency Medicine; PCP Nurse Practitioner
DX: M62.830 Muscle spasm of back (principal); M62.838 Other muscle spasm; V43.52XA Car driver injured in collision with other type car in traffic accident, initial encounter
CPT/HCPCS: 72100; 72170; 99284

== ENCOUNTER → 2024-03-23 08:25 | Outpatient (CLI) | payer OTHER, SELFPAY ==
[2023-02-21 08:08] VITALS: BMI 21.0
[2024-03-23 09:06] LABS: Cholesterol 236 mg/dL (140-199); HDL Cholesterol 98 mg/dL (40-60); LDL Cholesterol Calculated 115 mg/dL (<100); Triglycerides 114 mg/dL (35-150)
[2024-03-23 09:25] LABS: Follicle Stimulating Hormone 38.8 mIU/mL; Luteinizing Hormone 41.7 mIU/mL
== END ==
LOC: LAB 08:26
PROVIDERS: PCP Nurse Practitioner Family; Referring Provider Nurse Practitioner Family; Visit Provider Nurse Practitioner Family
DX: N91.2 Amenorrhea, unspecified (principal); E78.5 Hyperlipidemia, unspecified
CPT/HCPCS: 36415; 80061; 83001; 83002

== ENCOUNTER → 2024-07-09 07:36 | Outpatient (CLI) | payer OTHER, SELFPAY ==
[2023-02-21 08:08] VITALS: BMI 21.0
--- NOTE | 2024-07-09 07:37 | DI.CT.S_ITS ---
PROCEDURE: CT LUNG LOW DOSE SCREENING INDICATIONS: Current every day smoker TECHNIQUE: Noncontrast 2.0-2.5 mm thick sections acquired from the pulmonary apices to the posterior costophrenic angles. 7 mm thick axial MIP, and 5 mm coronal and sagittal reformats were then acquired. For radiation dose reduction, the following was used: automated exposure control, adjustment of mA and/or kV according to patient size. COMPARISON: None. FINDINGS: Image quality: Diagnostic. Lower Neck: No enlarged lymph nodes. Thyroid: The thyroid nodules Axillae: No enlarged lymph nodes. Chest Wall: Unremarkable. Bones: Unremarkable Lungs and Pleura: No pneumothorax or pleural effusions. No consolidation or pulmonary nodules. Heart: Heart size is normal. No pericardial effusion. Minimal coronary artery disease. Thoracic Vessels: The aorta and pulmonary arteries demonstrate normal size. Mediastinum and Dena: No enlarged lymph nodes. Esophagus: No wall thickening. No hiatal hernia. Upper Abdomen: Visualized upper abdomen solid organs and bowel loops appear normal. There is prominence of the left adrenal gland with a 1.5 cm enlargement. IMPRESSION: No suspicious pulmonary nodules. LUNG-RADS 1; continue annual screening if eligible Probably Anacin left adrenal enlargement. Interval follow-up CT characterization as clinically indicated. This is only recommended and if the patient is high risk. For some reason. Otherwise follow-up low-dose CT in 2025 would be adequate. Dictated by: Arturo De Santiago M.D. on 07/09/2024 at 8:55 Approved by: Arturo De Santiago M.D. on 07/09/2024 at 9:22
== END ==
PROVIDERS: PCP Nurse Practitioner Family; Referring Provider Nurse Practitioner Family; Visit Provider Nurse Practitioner Family
DX: Z12.2 Encounter for screening for malignant neoplasm of respiratory organs (principal); F17.210 Nicotine dependence, cigarettes, uncomplicated
CPT/HCPCS: 71271

== ENCOUNTER → 2024-08-25 09:06 | Outpatient (CLI) | payer OTHER, SELFPAY ==
[2023-02-21 08:08] VITALS: BMI 21.0
[2024-08-25 09:37] LABS: Add Manual Diff / Slide Review NO; Basophils Absolute Auto 0 /uL (0-100); Basophils Percent Auto 0.5 % (0-2); Eosinophils Absolute Auto 200 /uL (0-450); Eosinophils Percent Auto 2.4 % (2-4); Hematocrit 45.5 % (36-46); Hemoglobin 15.6 g/dL (12.0-16.0); Lymphocytes Absolute Auto 1400 /uL (1100-4500); Mean Corpuscular HGB Conc 34.2 % (30-36); Mean Corpuscular Hemoglobin 34.7 PG (26-34); Mean Corpuscular Volume 101.3 fL (80-100); Monocytes Absolute Auto 700 /uL (0-900); Monocytes Percent Auto 9.1 % (3-14); Neutrophils Absolute Auto 5100 /uL (1500-7000); Platelet Count 178 X10^3/uL (150-400); Red Blood Cell Count 4.49 X10^6/uL (4.0-5.2); Red Cell Distribution Width 13.8 % (11.6-14.8); White Blood Cell Count 7.4 X10^3/uL (4.5-11.0)
[2024-08-25 10:05] LABS: Alanine Aminotransferase 31 IU/L (<35); Albumin 4.6 g/dL (3.5-5.0); Albumin Globulin Ratio 1.7 (1.0-2.8); Alkaline Phosphatase 91 U/L (38-126); Aspartate Aminotransferase 37 IU/L (14-36); BUN Creatinine Ratio 28.2 (6-22); Bilirubin Total 0.7 mg/dL (0.2-1.3); Blood Urea Nitrogen 20 mg/dL (7-17); Calcium 9.9 mg/dL (8.4-10.2); Carbon Dioxide 28 mmol/L (22-32); Chloride 105 mmol/L (98-107); Estimated Glomerular Filt Rate > 60 mL/min (>60); Globulin 2.7 g/dL (1.7-4.1); Glucose 102 mg/dL (70-100); HEMOLYSIS < 15 (0-50); Potassium 5.7 mmol/L (3.4-5.1); Sodium 139 mmol/L (137-145); Total Protein 7.3 g/dL (6.3-8.2)
[2024-08-25 10:33] LABS: TSH w/ Reflex to FT4 2.92 uIU/mL (0.47-4.68)
== END ==
PROVIDERS: PCP Nurse Practitioner Family; Referring Provider Nurse Practitioner Family; Visit Provider Nurse Practitioner Family
DX: Z01.818 Encounter for other preprocedural examination (principal); E03.9 Hypothyroidism, unspecified; E78.5 Hyperlipidemia, unspecified
CPT/HCPCS: 36415; 80053; 84443; 85025

== ENCOUNTER → 2024-12-01 08:34 | Outpatient (CLI) | payer OTHER, SELFPAY ==
[2023-02-21 08:08] VITALS: BMI 21.0
--- NOTE | 2024-12-01 08:36 | DI.RAD.S_ITS ---
PROCEDURE: XR CHEST 2V INDICATIONS: cough TECHNIQUE: 2 views of the chest were acquired. COMPARISON: None. FINDINGS: Heart, mediastinum and pulmonary vascular: Heart is normal in size and configuration. Mediastinum is unremarkable. Pulmonary vascular is normal. Lungs: Clear Pleural spaces: Normal-no effusions or pneumothorax. Bones and soft tissues: Minimal chronic wedging of the thoracic vertebral bodies suggests chronic osteoporosis. IMPRESSION: No cardiopulmonary disease. Osteoporosis suspected. Consider DEXA scan. Patient may benefit from medical therapy for future fracture prevention Dictated by: Kwaku Ferreira M.D. on 12/02/2024 at 12:36 Approved by: Kwaku Ferreira M.D. on 12/02/2024 at 12:38
[2024-12-01 09:26] LABS: Alanine Aminotransferase 31 IU/L (<35); Albumin 4.4 g/dL (3.5-5.0); Albumin Globulin Ratio 1.4 (1.0-2.8); Alkaline Phosphatase 95 U/L (38-126); Aspartate Aminotransferase 37 IU/L (14-36); BUN Creatinine Ratio 25.8 (6-22); Bilirubin Total 0.9 mg/dL (0.2-1.3); Blood Urea Nitrogen 17 mg/dL (7-17); Calcium 9.9 mg/dL (8.4-10.2); Carbon Dioxide 29 mmol/L (22-32); Chloride 101 mmol/L (98-107); Cholesterol 235 mg/dL (140-199); Estimated Glomerular Filt Rate > 60 mL/min (>60); Globulin 3.1 g/dL (1.7-4.1); Glucose 87 mg/dL (70-99); HDL Cholesterol 105 mg/dL (40-60); HEMOLYSIS < 15 (0-50); LDL Cholesterol Calculated 108 mg/dL (<100); Sodium 136 mmol/L (137-145); Total Protein 7.5 g/dL (6.3-8.2); Triglycerides 111 mg/dL (35-150)
[2024-12-01 09:31] LABS: NT-proBNP (BNP-Adult 18+) 74 pg/mL (<125)
[2024-12-01 09:40] LABS: Potassium 5.5 mmol/L (3.4-5.1)
== END ==
PROVIDERS: PCP Nurse Practitioner Family; Referring Provider Nurse Practitioner Family; Visit Provider Nurse Practitioner Family
DX: R05.3 Chronic cough (principal); E87.5 Hyperkalemia; E03.9 Hypothyroidism, unspecified
CPT/HCPCS: 36415; 71046; 80053; 80061; 83880

== ENCOUNTER → 2024-12-20 09:05 | Outpatient (CLI) | payer OTHER, SELFPAY ==
[2023-02-21 08:08] VITALS: BMI 21.0
--- NOTE | 2024-12-20 09:06 | DI.ECHO.S_ITS ---
[facility]---------+ [facility] : : [address] : : [place] : : [id number] : : Phone: [phone] Echocardiogram Report + + :Name: SHALA JERRY Study Date: 12/20/2024 Height: 70 in : :[facility] ReadingLocation: Weight: 157 lb : : Gender: Female BSA: 1.9 m2 : :: 1970 Age: 54 yrs BP: 158/106 mmHg: :Reason For Study: MURMUR : :Ordering Physician: YVETTE, : :VALENTINA Performed By: Kira Palacios : :Referring: VALENTINA CRAWFORD : + + Interpretation Summary Normal left ventricle size with ejection fraction 55-60%. Proximal septal thickening is noted. Mild aortic valve sclerosis. The ascending aorta is mildly enlarged. Procedure: A two-dimensional transthoracic echocardiogram with color flow and Doppler was performed. The study quality was technically adequate. There is no prior echocardiogram noted for this patient. The patient was in sinus rhythm with heart rates between 73-78 bpm during the exam. Left Ventricle: The left ventricle is normal in size. Proximal septal thickening is noted. The ejection fraction is estimated to be 55-60%. There are no focal wall motion abnormalities. Normal diastolic function. Right Ventricle: The right ventricle is normal in size and function. Atria: The left atrial size is normal. Right atrial size is normal. There is no Doppler evidence for an interatrial shunt. Mitral Valve: The mitral valve leaflets appear to open well. There is trace mitral regurgitation. Aortic Valve: The aortic valve is trileaflet. The aortic valve opens well. There is mild aortic valve sclerosis. There is no aortic valve stenosis. There is trace aortic regurgitation. Tricuspid Valve: The tricuspid valve leaflets are thin and pliable. There is trace tricuspid regurgitation. Pulmonic Valve: The pulmonic valve leaflets are thin and pliable; valve motion is normal. There is no pulmonic valvular regurgitation. Great Vessels: The aortic root is normal size. The ascending aorta is mildly enlarged. The IVC is of normal diameter and collapses greater than 50% with a sniff. This suggests a low right atrial pressure of 3 mm Hg. Pericardium/ Pleura There is no pericardial effusion. There is no pleural effusion. MMode/2D Measurements & Calculations LVIDd: 5.5 cm LVOT diam: 2.2 cm LVIDs: 4.1 cm Ao root diam: 3.4 cm FS: 27.0 % asc Aorta Diam: 4.0 cm EPSS: 0.79 cm Ao Arch Diam (Prox Trans): 3.0 cm IVSd: 0.67 cm LVPWd: 1.0 cm LV wilkes. diameter/BSA (cm/m^2): 2.9 LV sys. diameter/BSA (cm/m^2): 2.2 LA A2 area: 18.0 cm2 RA long axis: 4.8 cm LA A4 area: 13.2 cm2 RA area: 11.6 cm2 LA length (vol): 4.7 cm RA vol: 23.7 ml LA vol: 42.8 ml RA : 12.6 ml/m2 LA vol index: 22.7 ml/m2 IVC diam: 0.98 cm RVD1 (basal): 3.2 cm RVD2 (mid): 2.9 cm TAPSE: 1.7 cm Doppler Measurements & Calculations Ao V2 max: 156.0 cm/sec LVOT Max Francesco: 91.9 cm/sec Ao V2 mean: 109.3 cm/sec LV V1 max P.4 mmHg Ao max P.7 mmHg LV V1 VTI: 17.9 cm Ao mean P.4 mmHg CB(I,D): 2.2 cm2 Ao V2 VTI: 30.4 cm CB(V,D): 2.2 cm2 sev ratio: 0.59 CB indexed to BSA (cm^2/m^2): 1.2 MV E max francesco: 53.1 cm/sec PA V2 max: 92.0 cm/sec MV A max francesco: 95.5 cm/sec PA V2 mean: 64.8 cm/sec MV E/A: 0.56 PA mean P.9 mmHg Med Peak E' Francesco: 5.7 cm/sec PA pr(Accel): 33.4 mmHg E/E' med: 9.4 Lat Peak E' Francesco: 5.9 cm/sec E/E' lat: 9.0 E/e' average: 9.2 MV dec time: 0.21 sec SV(LVOT): 66.7 ml Electronically signed by: Kentrell Aguero on Reading Physician:12/20/2024 03:00 PM
--- NOTE | 2024-12-20 09:06 | DI.RAD.S_ITS ---
PROCEDURE: XR DEXA AXIAL SKELETON INDICATIONS: osteoporosis COMPARISON: None. FINDINGS: Left Femoral Neck: Bone mineral density 0.616 g/cm2, T score -2.1. Left Hip: Bone mineral density 0.702 g/cm2, T score -2.0. Left Forearm: Bone mineral density 0.658 g/cm2, T score -0.6. Fracture Risk Calculation (when applicable): 10-year fracture risk of a major osteoporotic fracture 18 percent and of a hip fracture 5.1 percent. (T score greater or equal to -1.0 to: NORMAL) (T score from -1.1 to -2.4: OSTEOPENIA) (T score less than or equal to -2.5: OSTEOPOROSIS) IMPRESSION: Osteopenia--- recommend repeat DEXA in 2-3 years for reassessment. Follow-up guidelines as follows: Osteoporosis: Consider a repeat DEXA and Vertebral Fracture Assessment (VFA) exam in 2 years or sooner if medically necessary, to reassess this patient's status. Osteopenia: Consider a repeat DEXA in 2-3 years to reassess this patient's status, or if there is a new clinical indication. Normal: Consider a repeat DEXA in 5 years or sooner, or if there is a new clinical indication. All treatment decisions require clinical judgment and consideration of individual patient factors, including patient preferences, comorbidities, previous drug use, risk factors not captured in the FRAX model (e.g., frailty, falls, vitamin D deficiency, increased bone turnover, interval significant decline in bone density ) and possible under- or over-estimation of fracture risk by FRAX. In addition, the NOF Guide recommends that FDA-approved medical therapies be considered in postmenopausal women and men age >= 50 years with a: * Hip or vertebral (clinical or morphometric) fracture * T-score of <=-2.5 at the spine or hip * Ten-year fracture probability by FRAX of >= 3% for hip fracture or >=20% for major osteoporotic fracture. Dictated by: Reyes Mcfarlane M.D. on 12/20/2024 at 19:05 Approved by: Reyes Mcfarlane M.D. on 12/20/2024 at 19:08
== END ==
LOC: ECHO 09:06
PROVIDERS: PCP Nurse Practitioner Family; Referring Provider Nurse Practitioner Family; Visit Provider Nurse Practitioner Family
DX: I35.8 Other nonrheumatic aortic valve disorders (principal); R01.1 Cardiac murmur, unspecified; E87.5 Hyperkalemia; M81.0 Age-related osteoporosis without current pathological fracture; I77.89 Other specified disorders of arteries and arterioles
CPT/HCPCS: 77080; 93306

== ENCOUNTER 2025-05-14 06:11 | Emergency (ER) | payer OTHER, SELFPAY ==
[2023-02-21 08:08] VITALS: BMI 21.0
[2025-05-14] VITALS (8 sets, daily range): BP systolic 125–168; BP diastolic 85–101; PULSE 75–90; RESP 18; TEMP 37.1; O2SAT 92–100; BMI 22.6
--- NOTE | 2025-05-14 06:16 | ED.GENADULT ---
HPI - General Adult <Haylie Maharaj DO - Last Filed: 05/18/25 01:27> General Chief complaint: Abdominal Pain Stated complaint: Severe RT abd pain; vomiting, worsening Time Seen by Provider: 05/14/25 06:14 Source: patient, RN notes reviewed and old records reviewed Mode of arrival: Ambulatory Limitations: no limitations History of Present Illness HPI narrative: 54-year-old female history of cardiac ablation, chronic back pain, chronic alcohol and tobacco use who presents with complaint of right lower quadrant pain that started abruptly at about 5:00 a.m. this morning wakening patient from sleep. She denies any fevers or chills. She has had nausea or vomiting. Denies any back or flank pain. She states normal bowel movements no black or bloody stools no diarrhea or constipation. She denies any dysuria, urgency or frequency. Denies any vaginal bleeding or discharge. States she has not had similar symptoms in the past. Indicates it it hurts mostly in the right lower quadrant feels better when she puts pressure on the area. Patient states she has had prior back surgery but no prior intra-abdominal surgeries. States she takes diclofenac PRN but no other daily medications. She smokes about a pack daily, about a half of a 5th of alcohol daily, no recreational drugs. Related Data Home Medications ?Medication ?Instructions ?Recorded ?Confirmed acetaminophen 650 mg 650 mg PO Q12H 12/02/22 05/17/25 tablet,extended release (Tylenol Arthritis Pain) cyanocobalamin (vitamin B-12) 1,000 mcg PO BEDTIME 02/07/23 05/17/25 1,000 mcg tablet (Vitamin B-12) magnesium glycinate 100 mg (as 200 mg PO DAILY 02/07/23 05/17/25 glycinate) tablet melatonin 10 mg tablet 10 mg PO BEDTIME PRN Sleep 02/07/23 05/17/25 cetirizine 10 mg tablet (Zyrtec) 10 mg PO BID PRN 07/23/23 05/17/25 fluticasone propionate 50 2 spray intranasal DAILY 07/23/23 05/17/25 mcg/actuation nasal spray,suspension (Flonase Allergy Relief) Previous Rx's ?Medication ?Instructions ?Recorded azelastine 205.5 mcg (0.15 %) 2 spray intranasal BID #30 mL 07/23/23 nasal spray sodium,potassium,mag sulfates 17.5 See Rx Instructions PO .COMPLEX 08/13/24 gram-3.13 gram-1.6 gram oral soln #354 mL (Suprep Bowel Prep Kit) nicotine 21 mg/24 hr daily 1 patch transdermal DAILY #28 ea 08/19/24 transdermal patch bupropion HCl 150 mg tablet,12 hr 150 mg PO BID 12 weeks #168 ea 12/01/24 sustained-release (Wellbutrin SR) albuterol sulfate 90 mcg/actuation 2 puff inhalation QID PRN 12/09/24 aerosol inhaler shortness of breath or wheezing #6.7 grams tiotropium 2.5 mcg-olodaterol 2.5 2 puff inhalation DAILY #4 grams 12/09/24 mcg/actuation mist for inhalation (Stiolto Respimat) diclofenac sodium 75 mg 75 mg PO BID #60 tabs 01/10/25 tablet,delayed release cyclobenzaprine 5 mg tablet 5 mg PO TID PRN muscle spasm #30 03/09/25 tabs pantoprazole 20 mg tablet,delayed 20 mg PO DAILY #30 tabs 03/31/25 release naproxen 500 mg tablet (Naprosyn) 500 mg PO BID PRN pain #20 tabs 05/14/25 ondansetron 4 mg disintegrating 4 mg PO Q8H PRN nausea and 05/14/25 tablet vomiting #14 tabs tamsulosin 0.4 mg capsule (Flomax) 0.4 mg PO DAILY #3 caps 05/14/25 cefdinir 300 mg capsule 300 mg PO BID #10 caps 05/17/25 Allergies Allergy/AdvReac Type Severity Reaction Status Date / Time No Known Drug Allergies Allergy Verified 05/17/25 16:29 Review of Systems <Haylie Maharaj DO - Last Filed: 05/18/25 01:27> Review of Systems ROS Unobtainable: All systems reviewed & are unremarkable except as noted in HPI and below Patient History <Haylie Maharaj DO - Last Filed: 05/18/25 01:27> Medical History Cigarette nicotine dependence Tobacco smoker, 1 pack of cigarettes or less per day Chronic cough Seasonal allergies Carpal tunnel syndrome on both sides Neural foraminal stenosis of 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 Foraminal stenosis of lumbar region Bulging lumbar disc Bilateral wrist pain Depression (~2011) Anxiety (~2009) Shoulder pain (~2019) Fractures (~2018) Foot pain (~2016) Chronic back pain (~2012) Colon polyps (~2019) SVT (supraventricular tachycardia) (~2017) Vitamin D deficiency Hypothyroidism (acquired) (~2018) Hyperlipidemia Surgical History History of lumbar surgery Anesthesia History of ankle surgery (~2018) History of cardiac radiofrequency ablation (~2018) Family History Father Cirrhosis Mother History of heart disease Brother History of heart disease Family/Other Breast cancer Social History household members: spouse alcohol intake: current alcohol intake frequency: a few times a week Exam <Haylie Maharaj DO - Last Filed: 05/18/25 01:27> Narrative Exam Narrative: GENERAL: Alert and oriented x three, female in moderate distress HEENT: Head normocephalic, atraumatic, EOMI, pupils reactive, face symmetric, moist mucous membranes NECK: Supple, full range of motion CARDIOVASCULAR: Regular rate and rhythm without murmurs, rubs or gallops. RESPIRATORY: Breath sounds equal bilaterally, no wheezes rales or rhonchi. ABDOMEN: Soft, patient indicates pain in the right lower quadrant but not able to reproduce it with the palpation. No mass or hernia appreciated. Normoactive bowel sounds all 4 quadrants. No guarding or rebound, rigidity, no mass, no rash or skin change in appreciated. : No CVA tenderness EXTREMITIES: Normal range of motion, no clubbing or edema. Neurovascularly intact. 2+ pedal pulses bilaterally. NEUROLOGICAL: Cranial nerves II through XII grossly intact. Moving all extremities SKIN: Warm, dry, no petechiae, no rashes or lesions. Initial Vital Signs Initial Vital Signs: Vital Signs Pulse Rate 85 05/14/25 06:21 Pulse Oximetry 100 05/14/25 06:21 <Christian Cottrell MD - Last Filed: 05/14/25 09:28> Initial Vital Signs Initial Vital Signs: Vital Signs Pulse Rate 85 05/14/25 06:21 Pulse Oximetry 100 05/14/25 06:21 <Jhon Betancourt MD - Last Filed: 05/17/25 14:11> Initial Vital Signs Initial Vital Signs: Vital Signs Pulse Rate 85 05/14/25 06:21 Pulse Oximetry 100 05/14/25 06:21 Course <Haylie Maharaj DO - Last Filed: 05/18/25 01:27> Orders Ordered: Discontinued Medications Sodium Chloride (Normal Saline 0.9%) 1,000 mls @ 1,000 mls/hr IV BOLUS ONE Stop: 05/14/25 07:22 Last Infusion: 05/14/25 07:56 Dose: Infused Documented By: Admin: 05/14/25 06:28 Dose: 1,000 mls/hr Documented By: ERNESTINE Ketorolac Tromethamine (Ketorolac 30 Mg/Ml Vial) 15 mg IV NOW ONE Stop: 05/14/25 06:23 Last Admin: 05/14/25 06:28 Dose: 15 mg Documented By: ERNESTINE Ondansetron HCl (Ondansetron 4 Mg/2 Ml Inj) 4 mg IV NOW ONE Stop: 05/14/25 06:23 Last Admin: 05/14/25 06:28 Dose: 4 mg Documented By: ERNESTINE Vital Signs Vital signs: Vital Signs - 8 hr 05/14/25 06:21 05/14/25 06:24 05/14/25 06:30 Temperature 98.7 F Pulse Rate 85 75 82 Respiratory Rate 18 Blood Pressure 168/101 H Pulse Oximetry 100 98 96 Oxygen Delivery Method Room Air 05/14/25 06:30 05/14/25 07:00 05/14/25 07:00 Temperature Pulse Rate 86 Respiratory Rate Blood Pressure 168/101 H 137/90 Pulse Oximetry 93 Oxygen Delivery Method 05/14/25 07:30 05/14/25 07:30 05/14/25 08:00 Temperature Pulse Rate 84 Respiratory Rate Blood Pressure 125/89 129/90 Pulse Oximetry 94 Oxygen Delivery Method 05/14/25 08:00 Temperature Pulse Rate 90 Respiratory Rate Blood Pressure Pulse Oximetry 94 Oxygen Delivery Method <Christian Cottrell MD - Last Filed: 05/14/25 09:28> Course Course Narrative: 0920 the patient was signed out to me by Dr. Make to wait for the CT results and make appropriate disposition the CT was remarkable for a 5 mm stone at the right UV junction with hydroureteronephrosis moderate. I went back to re-evaluate the patient and informed her of the news patient was feeling better patient will be discharged home on Flomax Naprosyn and Zofran to follow up with her doctor next week return to ER if worse. Differential diagnosis is kidney stone pyelonephritis appendicitis Orders Ordered: Discontinued Medications Sodium Chloride (Normal Saline 0.9%) 1,000 mls @ 1,000 mls/hr IV BOLUS ONE Stop: 05/14/25 07:22 Last Infusion: 05/14/25 07:56 Dose: Infused Documented By: Admin: 05/14/25 06:28 Dose: 1,000 mls/hr Documented By: ERNESTINE Ketorolac Tromethamine (Ketorolac 30 Mg/Ml Vial) 15 mg IV NOW ONE Stop: 05/14/25 06:23 Last Admin: 05/14/25 06:28 Dose: 15 mg Documented By: ERNESTINE Ondansetron HCl (Ondansetron 4 Mg/2 Ml Inj) 4 mg IV NOW ONE Stop: 05/14/25 06:23 Last Admin: 05/14/25 06:28 Dose: 4 mg Documented By: ERNESTINE Vital Signs Vital signs: Vital Signs - 8 hr 05/14/25 06:21 05/14/25 06:24 05/14/25 06:30 Temperature 98.7 F Pulse Rate 85 75 82 Respiratory Rate 18 Blood Pressure 168/101 H Pulse Oximetry 100 98 96 Oxygen Delivery Method Room Air 05/14/25 06:30 05/14/25 07:00 05/14/25 07:00 Temperature Pulse Rate 86 Respiratory Rate Blood Pressure 168/101 H 137/90 Pulse Oximetry 93 Oxygen Delivery Method 05/14/25 07:30 05/14/25 07:30 05/14/25 08:00 Temperature Pulse Rate 84 Respiratory Rate Blood Pressure 125/89 129/90 Pulse Oximetry 94 Oxygen Delivery Method 05/14/25 08:00 Temperature Pulse Rate 90 Respiratory Rate Blood Pressure Pulse Oximetry 94 Oxygen Delivery Method <Jhon Betancourt MD - Last Filed: 05/17/25 14:11> Orders Ordered: Discontinued Medications Sodium Chloride (Normal Saline 0.9%) 1,000 mls @ 1,000 mls/hr IV BOLUS ONE Stop: 05/14/25 07:22 Last Infusion: 05/14/25 07:56 Dose: Infused Documented By: Admin: 05/14/25 06:28 Dose: 1,000 mls/hr Documented By: ERNESTINE Ketorolac Tromethamine (Ketorolac 30 Mg/Ml Vial) 15 mg IV NOW ONE Stop: 05/14/25 06:23 Last Admin: 05/14/25 06:28 Dose: 15 mg Documented By: ERNESTINE Ondansetron HCl (Ondansetron 4 Mg/2 Ml Inj) 4 mg IV NOW ONE Stop: 05/14/25 06:23 Last Admin: 05/14/25 06:28 Dose: 4 mg Documented By: ERNESTINE Vital Signs Vital signs: Vital Signs - 8 hr 05/14/25 06:21 05/14/25 06:24 05/14/25 06:30 Temperature 98.7 F Pulse Rate 85 75 82 Respiratory Rate 18 Blood Pressure 168/101 H Pulse Oximetry 100 98 96 Oxygen Delivery Method Room Air 05/14/25 06:30 05/14/25 07:00 05/14/25 07:00 Temperature Pulse Rate 86 Respiratory Rate Blood Pressure 168/101 H 137/90 Pulse Oximetry 93 Oxygen Delivery Method 05/14/25 07:30 05/14/25 07:30 05/14/25 08:00 Temperature Pulse Rate 84 Respiratory Rate Blood Pressure 125/89 129/90 Pulse Oximetry 94 Oxygen Delivery Method 05/14/25 08:00 Temperature Pulse Rate 90 Respiratory Rate Blood Pressure Pulse Oximetry 94 Oxygen Delivery Method Medical Decision Making <Haylie Maharaj, - Last Filed: 05/18/25 01:27> Lab Data 05/14/25 06:22 05/14/25 06:22 Labs: Lab Results 05/14/25 05/14/25 Range/Units 06:15 06:22 WBC 8.2 (4.5-11.0) X10^3/uL RBC 4.48 (4.0-5.2) X10^6/uL Hgb 15.5 (12.0-16.0) g/dL Hct 45.0 (36-46) % MCV 100.5 H (80-100) fL MCH 34.7 H (26-34) PG MCHC 34.5 (30-36) % RDW 12.9 (11.6-14.8) % Plt Count 205 (150-400) X10^3/uL Neut % (Auto) 66.8 (50-75) % Lymph % (Auto) 21.3 L (25-40) % [place] % (Auto) 9.4 (3-14) % Eos % (Auto) 1.9 L (2-4) % Baso % (Auto) 0.6 (0-2) % Neut # (Auto) 5500 (0435-9742) /uL Lymph # (Auto) 1800 (9249-0721) /uL [place] # (Auto) 800 (0-900) /uL Eos # (Auto) 200 (0-450) /uL Baso # (Auto) 100 (0-100) /uL Sodium 142 (137-145) mmol/L Potassium 4.1 (3.4-5.1) mmol/L Chloride 106 (98-107) mmol/L Carbon Dioxide 28 (22-32) mmol/L BUN 16 (7-17) mg/dL Creatinine 0.72 (0.52-1.04) mg/dL Estimated GFR > 60 (>60) mL/min BUN/Creatinine Ratio 22.2 H (6-22) Glucose 102 H (70-99) mg/dL Calcium 9.3 (8.4-10.2) mg/dL Total Bilirubin 0.3 (0.2-1.3) mg/dL AST 32 (14-36) IU/L ALT 26 (<35) IU/L Alkaline Phosphatase 72 (38-126) U/L Total Protein 8.3 H (6.3-8.2) g/dL Albumin 4.7 (3.5-5.0) g/dL Globulin 3.6 (1.7-4.1) g/dL Albumin/Globulin Ratio 1.3 (1.0-2.8) Lipase 538 H (23-300) U/L Urine RBC 0-1/hpf (0-5/HPF) Urine WBC 1-5/hpf (0-5/HPF) Ur Squamous Epith Cells 0-1 /hpf (0-5/HPF) Urine Bacteria Many (>30) H (None) Ur Culture Indicated? Specimen cultured Vol Urine Centrifuged 10ml (spun) Urine Dip Bedside Urine Glucose Negative Bedside Urine Bilirubin - Negative Bedside Urine Ketone - Negative Urine Specific [place] 1.020 Bedside Urine Occult Blood + Bedside Urine pH 6.0 Bedside Urine Protein +/- 15 Bedside Urine Urobilinogen - Negative Bedside Urine Nitrite + Positive Bedside Urine Leukocytes - Negative Esterase Point of care testing: Urine Dip Bedside Urine Glucose Negative Bedside Urine Bilirubin - Negative Bedside Urine Ketone - Negative Urine Specific [place] 1.020 Bedside Urine Occult Blood + Bedside Urine pH 6.0 Bedside Urine Protein +/- 15 Bedside Urine Urobilinogen - Negative Bedside Urine Nitrite + Positive Bedside Urine Leukocytes - Negative Esterase MDM Narrative Medical decision making narrative: Labs shows normal white count hemoglobin 15.5 platelets are 205. Chemistries are appropriate BUN and creatinine normal glucose is 102 LFTs are normal total protein is 8.3 lipase is slightly elevated at 538. Urine patient has a nitrate positive urine 1 RBCs 1-5 white cells 1 squamous many bacteria. Has been has been sent for culture. CT abd/pelvis Patient received fluids, pain medication and antiemetics. Patient signed out to Dr. Cottrell while awaiting CT imaging. <Christian Cottrell MD - Last Filed: 05/14/25 09:28> Lab Data Labs: Lab Results 05/14/25 05/14/25 Range/Units 06:15 06:22 WBC 8.2 (4.5-11.0) X10^3/uL RBC 4.48 (4.0-5.2) X10^6/uL Hgb 15.5 (12.0-16.0) g/dL Hct 45.0 (36-46) % MCV 100.5 H (80-100) fL MCH 34.7 H (26-34) PG MCHC 34.5 (30-36) % RDW 12.9 (11.6-14.8) % Plt Count 205 (150-400) X10^3/uL Neut % (Auto) 66.8 (50-75) % Lymph % (Auto) 21.3 L (25-40) % [place] % (Auto) 9.4 (3-14) % Eos % (Auto) 1.9 L (2-4) % Baso % (Auto) 0.6 (0-2) % Neut # (Auto) 5500 (7167-6716) /uL Lymph # (Auto) 1800 (3474-1006) /uL [place] # (Auto) 800 (0-900) /uL Eos # (Auto) 200 (0-450) /uL Baso # (Auto) 100 (0-100) /uL Sodium 142 (137-145) mmol/L Potassium 4.1 (3.4-5.1) mmol/L Chloride 106 (98-107) mmol/L Carbon Dioxide 28 (22-32) mmol/L BUN 16 (7-17) mg/dL Creatinine 0.72 (0.52-1.04) mg/dL Estimated GFR > 60 (>60) mL/min BUN/Creatinine Ratio 22.2 H (6-22) Glucose 102 H (70-99) mg/dL Calcium 9.3 (8.4-10.2) mg/dL Total Bilirubin 0.3 (0.2-1.3) mg/dL AST 32 (14-36) IU/L ALT 26 (<35) IU/L Alkaline Phosphatase 72 (38-126) U/L Total Protein 8.3 H (6.3-8.2) g/dL Albumin 4.7 (3.5-5.0) g/dL Globulin 3.6 (1.7-4.1) g/dL Albumin/Globulin Ratio 1.3 (1.0-2.8) Lipase 538 H (23-300) U/L Urine RBC 0-1/hpf (0-5/HPF) Urine WBC 1-5/hpf (0-5/HPF) Ur Squamous Epith Cells 0-1 /hpf (0-5/HPF) Urine Bacteria Many (>30) H (None) Ur Culture Indicated? Specimen cultured Vol Urine Centrifuged 10ml (spun) Urine Dip Bedside Urine Glucose Negative Bedside Urine Bilirubin - Negative Bedside Urine Ketone - Negative Urine Specific [place] 1.020 Bedside Urine Occult Blood + Bedside Urine pH 6.0 Bedside Urine Protein +/- 15 Bedside Urine Urobilinogen - Negative Bedside Urine Nitrite + Positive Bedside Urine Leukocytes - Negative Esterase Point of care testing: Urine Dip Bedside Urine Glucose Negative Bedside Urine Bilirubin - Negative Bedside Urine Ketone - Negative Urine Specific [place] 1.020 Bedside Urine Occult Blood + Bedside Urine pH 6.0 Bedside Urine Protein +/- 15 Bedside Urine Urobilinogen - Negative Bedside Urine Nitrite + Positive Bedside Urine Leukocytes - Negative Esterase <Jhon Betancourt MD - Last Filed: 05/17/25 14:11> Lab Data Labs: Lab Results 05/14/25 05/14/25 Range/Units 06:15 06:22 WBC 8.2 (4.5-11.0) X10^3/uL RBC 4.48 (4.0-5.2) X10^6/uL Hgb 15.5 (12.0-16.0) g/dL Hct 45.0 (36-46) % MCV 100.5 H (80-100) fL MCH 34.7 H (26-34) PG MCHC 34.5 (30-36) % RDW 12.9 (11.6-14.8) % Plt Count 205 (150-400) X10^3/uL Neut % (Auto) 66.8 (50-75) % Lymph % (Auto) 21.3 L (25-40) % [place] % (Auto) 9.4 (3-14) % Eos % (Auto) 1.9 L (2-4) % Baso % (Auto) 0.6 (0-2) % Neut # (Auto) 5500 (2455-9820) /uL Lymph # (Auto) 1800 (9695-6690) /uL [place] # (Auto) 800 (0-900) /uL Eos # (Auto) 200 (0-450) /uL Baso # (Auto) 100 (0-100) /uL Sodium 142 (137-145) mmol/L Potassium 4.1 (3.4-5.1) mmol/L Chloride 106 (98-107) mmol/L Carbon Dioxide 28 (22-32) mmol/L BUN 16 (7-17) mg/dL Creatinine 0.72 (0.52-1.04) mg/dL Estimated GFR > 60 (>60) mL/min BUN/Creatinine Ratio 22.2 H (6-22) Glucose 102 H (70-99) mg/dL Calcium 9.3 (8.4-10.2) mg/dL Total Bilirubin 0.3 (0.2-1.3) mg/dL AST 32 (14-36) IU/L ALT 26 (<35) IU/L Alkaline Phosphatase 72 (38-126) U/L Total Protein 8.3 H (6.3-8.2) g/dL Albumin 4.7 (3.5-5.0) g/dL Globulin 3.6 (1.7-4.1) g/dL Albumin/Globulin Ratio 1.3 (1.0-2.8) Lipase 538 H (23-300) U/L Urine RBC 0-1/hpf (0-5/HPF) Urine WBC 1-5/hpf (0-5/HPF) Ur Squamous Epith Cells 0-1 /hpf (0-5/HPF) Urine Bacteria Many (>30) H (None) Ur Culture Indicated? Specimen cultured Vol Urine Centrifuged 10ml (spun) Urine Dip Bedside Urine Glucose Negative Bedside Urine Bilirubin - Negative Bedside Urine Ketone - Negative Urine Specific [place] 1.020 Bedside Urine Occult Blood + Bedside Urine pH 6.0 Bedside Urine Protein +/- 15 Bedside Urine Urobilinogen - Negative Bedside Urine Nitrite + Positive Bedside Urine Leukocytes - Negative Esterase Point of care testing: Urine Dip Bedside Urine Glucose Negative Bedside Urine Bilirubin - Negative Bedside Urine Ketone - Negative Urine Specific [place] 1.020 Bedside Urine Occult Blood + Bedside Urine pH 6.0 Bedside Urine Protein +/- 15 Bedside Urine Urobilinogen - Negative Bedside Urine Nitrite + Positive Bedside Urine Leukocytes - Negative Esterase MDM Narrative Medical decision making narrative: Labs shows normal white count hemoglobin 15.5 platelets are 205. Chemistries are appropriate BUN and creatinine normal glucose is 102 LFTs are normal total protein is 8.3 lipase is slightly elevated at 538. Urine patient has a nitrate positive urine 1 RBCs 1-5 white cells 1 squamous many bacteria. Has been has been sent for culture. CT abd/pelvis Patient received fluids, pain medication and antiemetics. Patient signed out to Dr. Cottrell while awaiting CT imaging. May 17, 2025 at 2:09 p.m.. Urine culture returned. Patient needs Omnicef 300 mg twice a day for 5 days. Positive E coli. Prescription sent to [facility] Discharge Plan Departure Patient Disposition: Home Clinical Impression: Kidney stone on right side Instructions: DI for Kidney Stones Prescriptions: New naproxen [Naprosyn] 500 mg tablet 500 mg PO BID PRN (Reason: pain) Qty: 20 0RF tamsulosin [Flomax] 0.4 mg capsule 0.4 mg PO DAILY Qty: 3 0RF ondansetron 4 mg tablet,disintegrating 4 mg PO Q8H PRN (Reason: nausea and vomiting) Qty: 14 0RF cefdinir 300 mg capsule 300 mg PO BID Qty: 10 0RF No Action azelastine 205.5 mcg (0.15 %) spray,non-aerosol 2 spray intranasal BID Qty: 30 1RF Rx Instructions: administer into each nostril sodium,potassium,mag sulfates [Suprep Bowel Prep Kit] 17.5-3.13-1.6 gram recon soln See Rx Instructions PO .COMPLEX Qty: 354 0RF Rx Instructions: take as directed by Physician nicotine 21 mg/24 hr patch 24 hour 1 patch transdermal DAILY Qty: 28 0RF diclofenac sodium 75 mg tablet,delayed release (DR/EC) 75 mg PO BID Qty: 60 2RF pantoprazole 20 mg tablet,delayed release (DR/EC) 20 mg PO DAILY Qty: 30 1RF acetaminophen [Tylenol Arthritis Pain] 650 mg tablet extended release 650 mg PO Q12H fluticasone propionate [Flonase Allergy Relief] 50 mcg/actuation spray,suspension 2 spray intranasal DAILY Rx Instructions: administer into each nostril cetirizine [Zyrtec] 10 mg tablet 10 mg PO BID PRN cyclobenzaprine 5 mg tablet 5 mg PO TID PRN (Reason: muscle spasm) Qty: 30 0RF bupropion HCl [Wellbutrin SR] 150 mg tablet sustained-release 12 hr 150 mg PO BID 84 Days Qty: 168 3RF cyanocobalamin (vitamin B-12) [Vitamin B-12] 1,000 mcg Tablet 1,000 mcg PO BEDTIME magnesium glycinate 100 mg Tablet 200 mg PO DAILY melatonin 10 mg Tablet 10 mg PO BEDTIME PRN (Reason: Sleep) albuterol sulfate 90 mcg/actuation HFA aerosol inhaler 2 puff inhalation QID PRN (Reason: shortness of breath or wheezing) Qty: 6.7 3RF Stiolto Respimat 2.5-2.5 mcg/actuation mist 2 puff inhalation DAILY Qty: 4 6RF Referrals: Kathryn Gutierrez FNP-BC [Primary Care Provider, Family Practice] Stand Alone Forms: Patient Portal/API
--- NOTE | 2025-05-14 06:22 | DI.CT.S_ITS ---
PROCEDURE: CT ABDOMEN PELVIS W CON INDICATIONS: RLQ pain, nontender, ?stone vs appy, no flank pain TECHNIQUE: After the administration of intravenous contrast, axial sections acquired from the lung bases to the pubic symphysis. Coronal and sagittal reformats were performed. For radiation dose reduction, the following was used: automated exposure control, adjustment of mA and/or kV according to patient size. COMPARISON: [facility], CT, CT LUNG LOW DOSE SCREENING, 07/09/2024, 7:44. FINDINGS: Image quality: Diagnostic. Lower Chest: No significant findings. ABDOMEN: Liver: No solid mass. Liver measures 17.7 cm with mild steatosis. Gallbladder: No radiopaque gallstones or wall thickening. Biliary ducts: No biliary dilation. Pancreas: No ductal dilation. Spleen: Size is within normal limits. Adrenal Glands: 1.8 cm left adrenal nodule, unchanged. Kidneys and Ureters: Left kidney i demonstrates simple cysts. No obstruction. A left kidney demonstrates multiple low-attenuation foci consistent with simple cyst. There is a slight appearance of delayed nephrogram. Moderate hydronephrosis and hydroureter are present. 5 mm calcification at the ureterovesicular junction is present Hounsfield units 615. Punctate nonobstructing numerous renal calculi on the right are present. Stomach and Bowel: Normal colonic caliber, without significant wall thickening. Moderate colonic stool. Minimal diverticula. No definitive inflammatory change. Peritoneum: No abnormal intraperitoneal fluid. No free air. Ventral Wall: No significant ventral hernia. Abdominal Nodes: No retroperitoneal or mesenteric adenopathy by size criteria. Vessels: Aorta and inferior vena cava are normal in size. PELVIS: Pelvic Organs: IUD. Bladder: No bladder wall thickening, accounting for underdistention. Pelvic Nodes: No enlarged lymph nodes. Miscellaneous: No inguinal hernias are seen. Bones: No aggressive osseous abnormality. IMPRESSION: Right hydronephrosis and hydroureter with calcification at the ureterovesicular junction. Nonobstructing renal calculi. Slight appearance of right renal delayed nephrogram possibly secondary to renal edema from obstruction. The above findings are concordant with preliminary report. Dictated by: Mira Valencia M.D. on 05/14/2025 at 8:36 Approved by: Mira Valencia M.D. on 05/14/2025 at 8:40
[2025-05-14] MEDS: ONDANSETRON 4 MG/2 ML INJ IV (06:28)
[2025-05-14] MEDS: KETOROLAC 30 MG/ML VIAL 15 MG IV (06:28)
[2025-05-14] MEDS: SODIUM CHLORIDE 0.9% 1,000 ML 1000 ML IV (06:28)
[2025-05-14 06:31] LABS: Add Manual Diff / Slide Review NO; Hematocrit 45.0 % (36-46); Hemoglobin 15.5 g/dL (12.0-16.0); Lymphocytes Absolute Auto 1800 /uL (1100-4500); Mean Corpuscular HGB Conc 34.5 % (30-36); Mean Corpuscular Hemoglobin 34.7 PG (26-34); Mean Corpuscular Volume 100.5 fL (80-100); Platelet Count 205 X10^3/uL (150-400)
[2025-05-14 06:39] LABS: Culture Indicated Urine Specimen Cultured
[2025-05-14 06:43] LABS: Alanine Aminotransferase 26 IU/L (<35); Albumin 4.7 g/dL (3.5-5.0); Albumin Globulin Ratio 1.3 (1.0-2.8); Alkaline Phosphatase 72 U/L (38-126); Blood Urea Nitrogen 16 mg/dL (7-17); Calcium 9.3 mg/dL (8.4-10.2); Carbon Dioxide 28 mmol/L (22-32); Chloride 106 mmol/L (98-107); Estimated Glomerular Filt Rate > 60 mL/min (>60); Globulin 3.6 g/dL (1.7-4.1); Glucose 102 mg/dL (70-99); HEMOLYSIS < 15 (0-50); Lipase 538 U/L (23-300); Potassium 4.1 mmol/L (3.4-5.1); Sodium 142 mmol/L (137-145); Total Protein 8.3 g/dL (6.3-8.2)
--- NOTE | 2025-05-14 07:06 | PC.NURSE ---
pt states the pain has decreased and the nausea is better, warm blankets given and lights dimmed
== END 2025-05-14 09:38 | disposition home or self-care (01) ==
PROVIDERS: Emergency Provider Emergency Medicine; PCP Nurse Practitioner Family
DX: N13.2 Hydronephrosis with renal and ureteral calculous obstruction (principal); B96.20 Unspecified Escherichia coli [E. coli] as the cause of diseases classified elsewhere
CPT/HCPCS: 36415; 74177; 80053; 81003; 81015; 83690; 85025; 87077; 87086; 87186; 96374; 96375; 99284; J1885; J2405; J7030; Q9967

== ENCOUNTER 2025-05-23 12:26 | Emergency (ER) | payer OTHER, SELFPAY ==
[2023-02-21 08:08] VITALS: BMI 21.0
[2025-05-23 12:29] VITALS: BP 135/84; PULSE 114; RESP 18; TEMP 36.9; O2SAT 98; BMI 24.0
--- NOTE | 2025-05-23 12:41 | DI.CT.S_ITS ---
PROCEDURE: CT ABDOMEN PELVIS W CON INDICATIONS: abd pain TECHNIQUE: After the administration of intravenous contrast, axial sections acquired from the lung bases to the pubic symphysis. Coronal and sagittal reformats were performed. For radiation dose reduction, the following was used: automated exposure control, adjustment of mA and/or kV according to patient size. COMPARISON: [facility], CT, CT ABDOMEN PELVIS W CON, 05/14/2025, 6:28. FINDINGS: Image quality: Diagnostic. Lower Chest: No significant findings. ABDOMEN: Liver: No solid mass. Hepatomegaly and moderate hepatic steatosis is seen. Gallbladder: No radiopaque gallstones or wall thickening. Biliary ducts: No biliary dilation. Pancreas: No ductal dilation. Spleen: Size is within normal limits. Adrenal Glands: 1.8 cm left adrenal nodule is unchanged. Kidneys and Ureters: Bilateral simple appearing renal cysts are again seen unchanged from previous study. Nonobstructing stones are again seen scattered in right renal parenchyma unchanged from prior study. No hydronephrosis or hydroureter is seen on the current study. Previously described right UVJ stone is no longer present . multiple phleboliths are noted in bilateral pelvis. Stomach and Bowel: There is no bowel obstruction. No abnormal bowel wall thickening or mesenteric fat stranding. No abscess collection. Peritoneum: No abnormal intraperitoneal fluid. No free air. Ventral Wall: No significant ventral hernia. Abdominal Nodes: No retroperitoneal or mesenteric adenopathy by size criteria. Vessels: Aorta and inferior vena cava are normal in size. PELVIS: Pelvic Organs: Intrauterine device is again seen. Bladder: No bladder wall thickening, accounting for underdistention. Pelvic Nodes: No enlarged lymph nodes. Miscellaneous: No inguinal hernias are seen. Bones: No aggressive osseous abnormality. IMPRESSION: 1. Interval passing of previously noted right UVJ stone with interval resolution of previously noted right-sided hydronephrosis and hydroureter. No obstructing renal stones or hydronephrosis is seen on the current study. Right-sided nonobstructing renal stones and simple appearing bilateral renal cysts are unchanged from prior study. 2. Normal appearing urinary bladder. 3. Other chronic findings are unchanged from prior study. Dictated by: Calixto Costa M.D. on 05/23/2025 at 14:11 Approved by: Calixto Costa M.D. on 05/23/2025 at 14:17
--- NOTE | 2025-05-23 13:02 | ED.FEVER ---
HPI - Fever <Italia Frausto PA-C - Last Filed: 05/23/25 15:52> General Chief Complaint: Fever Stated Complaint: Fever on and off , chills, possible Still has UTI Time Seen by Provider: 05/23/25 12:37 Source: patient Mode of arrival: Ambulatory History of Present Illness HPI Narrative: 54-year-old female, daily smoker with past medical history hypothyroidism, hyperlipidemia, GERD, nephrolithiasis presents to the ED with 1 week of fevers. Patient was seen in the ED on 05/14/2025, diagnosed with a right-sided nonobstructing kidney stone that is 5 mm, in the ureteral vesicular junction. Patient was also diagnosed with a positive urine culture, positive for E coli. Patient was put on cefdinir for 5 days, which she has completed. Patient complains of continued fevers, T-max 101? F. also endorses chills. Endorses nausea, denies vomiting. Denies any URI or flu-like symptoms such as cough, rhinorrhea. Denies chest pain, shortness of breath, lightheadedness, dizziness, syncope. Patient does endorse abdominal bloating, tenderness, constipation. Patient has been taking some laxatives. Last bowel movement was yesterday morning. Related Data Home Medications ?Medication ?Instructions ?Recorded ?Confirmed acetaminophen 650 mg 650 mg PO Q12H 12/02/22 05/17/25 tablet,extended release (Tylenol Arthritis Pain) cyanocobalamin (vitamin B-12) 1,000 mcg PO BEDTIME 02/07/23 05/17/25 1,000 mcg tablet (Vitamin B-12) magnesium glycinate 100 mg (as 200 mg PO DAILY 02/07/23 05/17/25 glycinate) tablet melatonin 10 mg tablet 10 mg PO BEDTIME PRN Sleep 02/07/23 05/17/25 cetirizine 10 mg tablet (Zyrtec) 10 mg PO BID PRN 07/23/23 05/17/25 fluticasone propionate 50 2 spray intranasal DAILY 07/23/23 05/17/25 mcg/actuation nasal spray,suspension (Flonase Allergy Relief) Previous Rx's ?Medication ?Instructions ?Recorded azelastine 205.5 mcg (0.15 %) 2 spray intranasal BID #30 mL 07/23/23 nasal spray sodium,potassium,mag sulfates 17.5 See Rx Instructions PO .COMPLEX 08/13/24 gram-3.13 gram-1.6 gram oral soln #354 mL (Suprep Bowel Prep Kit) nicotine 21 mg/24 hr daily 1 patch transdermal DAILY #28 ea 08/19/24 transdermal patch bupropion HCl 150 mg tablet,12 hr 150 mg PO BID 12 weeks #168 ea 12/01/24 sustained-release (Wellbutrin SR) albuterol sulfate 90 mcg/actuation 2 puff inhalation QID PRN 12/09/24 aerosol inhaler shortness of breath or wheezing #6.7 grams tiotropium 2.5 mcg-olodaterol 2.5 2 puff inhalation DAILY #4 grams 12/09/24 mcg/actuation mist for inhalation (Stiolto Respimat) diclofenac sodium 75 mg 75 mg PO BID #60 tabs 01/10/25 tablet,delayed release cyclobenzaprine 5 mg tablet 5 mg PO TID PRN muscle spasm #30 03/09/25 tabs pantoprazole 20 mg tablet,delayed 20 mg PO DAILY #30 tabs 03/31/25 release naproxen 500 mg tablet (Naprosyn) 500 mg PO BID PRN pain #20 tabs 05/14/25 ondansetron 4 mg disintegrating 4 mg PO Q8H PRN nausea and 05/14/25 tablet vomiting #14 tabs cefdinir 300 mg capsule 300 mg PO BID #10 caps 05/17/25 tamsulosin 0.4 mg capsule (Flomax) 0.4 mg PO DAILY #14 caps 05/18/25 sulfamethoxazole 800 1 tab PO Q12H 10 days #20 tabs 05/23/25 mg-trimethoprim 160 mg tablet (Bactrim DS) Allergies Allergy/AdvReac Type Severity Reaction Status Date / Time No Known Drug Allergies Allergy Verified 05/23/25 12:29 Review of Systems <Italia Frausto PA-C - Last Filed: 05/23/25 15:52> Constitutional Constitutional: Reports chills, Denies fatigue, Reports fever(s), Denies frequent falls, Denies lethargy and Denies weakness Eyes Eyes: Denies change in vision, Denies eye discharge, Denies irritation and Denies loss of vision ENT Ears, Nose, Mouth, and Throat: Denies change in voice, Denies dizziness, Denies neck pain, Denies sore throat and Denies throat swelling Cardiovascular Cardiovascular: Denies chest pain, Denies irregular heart rhythm, Denies lightheadedness, Denies palpitations, Denies dyspnea, Denies dyspnea on exertion and Denies orthopnea Respiratory Respiratory: Denies cough, Denies dyspnea, Denies dyspnea on exertion and Denies wheezing Gastrointestinal Gastrointestinal: Reports abdominal pain, Denies change in bowel habits, Denies diarrhea, Reports nausea and Denies vomiting Musculoskeletal Musculoskeletal: Denies neck pain and Denies numbness Integumentary/Breasts Skin/Breast: Denies pruritus, Denies erythema, Denies rash and Denies wounds Neurologic Neurologic: Denies behavioral changes, Denies confusion, Denies dizziness, Denies frequent falls, Denies loss of vision, Denies numbness and Denies weakness Psychiatric Psychiatric: Denies anxiety, Denies behavioral changes, Denies confusion, Denies depression, Denies homicidal ideation and Denies suicidal ideation Endocrine Endocrine: Denies fatigue, Denies flushing and Denies palpitations Hematologic/Lymphatic Hematologic/Lymphatic: Denies easy bruising Allergic/Immunologic Allergic/Immunologic: Denies urticaria, Denies throat swelling and Denies wheezing Patient History <Italia Frausto PA-C - Last Filed: 05/23/25 15:52> Medical History Cigarette nicotine dependence Tobacco smoker, 1 pack of cigarettes or less per day Chronic cough Seasonal allergies Carpal tunnel syndrome on both sides Neural foraminal stenosis of 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 Foraminal stenosis of lumbar region Bulging lumbar disc Bilateral wrist pain Depression (~2011) Anxiety (~2010) Shoulder pain (~2020) Fractures (~2018) Foot pain (~2016) Chronic back pain (~2013) Colon polyps (~2019) SVT (supraventricular tachycardia) (~2017) Vitamin D deficiency Hypothyroidism (acquired) (~2018) Hyperlipidemia Surgical History History of lumbar surgery Anesthesia History of ankle surgery (~2019) History of cardiac radiofrequency ablation (~2018) Family History Father Cirrhosis Mother History of heart disease Brother History of heart disease Family/Other Breast cancer Social History household members: spouse Smoking Status: Current every day smoker alcohol intake: current Smoking Status: Current every day smoker tobacco type: cigarettes alcohol intake frequency: a few times a week Alcohol type: hard liquor Exam <Italia Frausto PA-C - Last Filed: 05/23/25 15:52> Narrative Exam Narrative: Const General:?cooperative, healthy appearing and comfortable [facility] Head:?normal to inspection Ears:?hearing grossly normal bilaterally Nose:?external nose normal Face and sinus:?normal facial exam and sinuses nontender Mouth:?oral mucosae normal Throat:?posterior oropharynx normal Eyes General:?appearance normal, both eyes and all related structures Neck Neck:?normal visual inspection and no lymphadenopathy noted Resp Effort & Inspection:?normal respiratory effort Auscultation:?clear to auscultation bilaterally Cardio Rate:?regular rate Rhythm:?regular rhythm GI Abdomen is soft, nondistended, nontender to palpation. No CVA tenderness. Neuro General:?patient alert, patient awake and patient oriented x3 Initial Vital Signs Initial Vital Signs: Vital Signs Temperature 98.4 F 05/23/25 12:29 Pulse Rate 114 H 05/23/25 12:29 Respiratory Rate 18 05/23/25 12:29 Blood Pressure 135/84 05/23/25 12:29 Pulse Oximetry 98 05/23/25 12:29 Oxygen Delivery Method Room Air 05/23/25 12:29 <Haylie Maharaj DO - Last Filed: 05/23/25 16:08> Initial Vital Signs Initial Vital Signs: Vital Signs Temperature 98.4 F 05/23/25 12:29 Pulse Rate 114 H 05/23/25 12:29 Respiratory Rate 18 05/23/25 12:29 Blood Pressure 135/84 05/23/25 12:29 Pulse Oximetry 98 05/23/25 12:29 Oxygen Delivery Method Room Air 05/23/25 12:29 Course <Italia Frausto PA-C - Last Filed: 05/23/25 15:52> Orders Ordered: ED Orders 05/23/25 12:41 CT abdomen pelvis w con Stat 05/23/25 12:56 CBC Auto Diff [Complete Blood Count AUTO DIFF] Stat CMP [Comprehensive Metabolic Panel] Stat Lactate (Lactic Acid) Stat Lipase Stat 05/23/25 13:50 Urine Culture Stat Urine Microscopic Stat 05/23/25 14:15 Blood Culture Stat Discontinued Medications Sodium Chloride (Normal Saline 0.9%) 2,055 mls @ 1,370 mls/hr 30 ml/kg infuse over 90 min (2055 ml) IV NOW ONE Stop: 05/23/25 15:27 Last Admin: 05/23/25 15:47 Dose: Not Given Documented By: JEAN-PAUL Ceftriaxone Sodium 1,000 mg/ (Sodium Chloride) 100 mls @ 200 mls/hr IV NOW ONE Stop: 05/23/25 13:59 Last Infusion: 05/23/25 15:07 Dose: Infused Documented By: Admin: 05/23/25 14:30 Dose: 200 mls/hr Documented By: RAUL Sodium Chloride (Normal Saline 0.9%) 2,286.12 mls @ 1,524.08 mls/hr 30 ml/kg infuse over 90 min (2286.12 ml) IV NOW ONE Stop: 05/23/25 15:34 Last Infusion: 05/23/25 15:47 Dose: Infused Documented By: JEAN-PAUL Admin: 05/23/25 14:29 Dose: 1,524.08 mls/hr Documented By: RAUL Vital Signs Vital signs: Vital Signs - 8 hr 05/23/25 12:29 05/23/25 14:31 Temperature 98.4 F 98.9 F Pulse Rate 114 H 92 H Respiratory Rate 18 16 Blood Pressure 135/84 131/88 Pulse Oximetry 98 98 Oxygen Delivery Method Room Air Room Air <Haylie Maharaj, - Last Filed: 05/23/25 16:08> Orders Ordered: ED Orders 05/23/25 12:41 CT abdomen pelvis w con Stat 05/23/25 12:56 CBC Auto Diff [Complete Blood Count AUTO DIFF] Stat CMP [Comprehensive Metabolic Panel] Stat Lactate (Lactic Acid) Stat Lipase Stat 05/23/25 13:50 Urine Culture Stat Urine Microscopic Stat 05/23/25 14:15 Blood Culture Stat Discontinued Medications Sodium Chloride (Normal Saline 0.9%) 2,055 mls @ 1,370 mls/hr 30 ml/kg infuse over 90 min (2055 ml) IV NOW ONE Stop: 05/23/25 15:27 Last Admin: 05/23/25 15:47 Dose: Not Given Documented By: JEAN-PAUL Ceftriaxone Sodium 1,000 mg/ (Sodium Chloride) 100 mls @ 200 mls/hr IV NOW ONE Stop: 05/23/25 13:59 Last Infusion: 05/23/25 15:07 Dose: Infused Documented By: Admin: 05/23/25 14:30 Dose: 200 mls/hr Documented By: RAUL Sodium Chloride (Normal Saline 0.9%) 2,286.12 mls @ 1,524.08 mls/hr 30 ml/kg infuse over 90 min (2286.12 ml) IV NOW ONE Stop: 05/23/25 15:34 Last Infusion: 05/23/25 15:47 Dose: Infused Documented By: JEAN-PAUL Admin: 05/23/25 14:29 Dose: 1,524.08 mls/hr Documented By: RAUL Vital Signs Vital signs: Vital Signs - 8 hr 05/23/25 12:29 05/23/25 14:31 Temperature 98.4 F 98.9 F Pulse Rate 114 H 92 H Respiratory Rate 18 16 Blood Pressure 135/84 131/88 Pulse Oximetry 98 98 Oxygen Delivery Method Room Air Room Air MDM - Fever <Italia Frausto PA-C - Last Filed: 05/23/25 15:52> Lab Data 05/23/25 12:56 05/23/25 12:56 Labs: Lab Results 05/23/25 05/23/25 Range/Units 12:56 13:50 WBC 14.1 H (4.5-11.0) X10^3/uL RBC 3.68 L (4.0-5.2) X10^6/uL Hgb 12.5 (12.0-16.0) g/dL Hct 36.0 (36-46) % MCV 97.7 (80-100) fL MCH 34.0 (26-34) PG MCHC 34.7 (30-36) % RDW 13.4 (11.6-14.8) % Plt Count 331 (150-400) X10^3/uL Neut % (Auto) 84.9 H (50-75) % Lymph % (Auto) 8.0 L (25-40) % [place] % (Auto) 5.6 (3-14) % Eos % (Auto) 1.0 L (2-4) % Baso % (Auto) 0.5 (0-2) % Neut # (Auto) 33702 H (8184-0584) /uL Lymph # (Auto) 1100 (5515-5844) /uL [place] # (Auto) 800 (0-900) /uL Eos # (Auto) 100 (0-450) /uL Baso # (Auto) 100 (0-100) /uL Sodium 135 L (137-145) mmol/L Potassium 4.1 (3.4-5.1) mmol/L Chloride 101 (98-107) mmol/L Carbon Dioxide 27 (22-32) mmol/L BUN 24 H (7-17) mg/dL Creatinine 0.89 (0.52-1.04) mg/dL Estimated GFR > 60 (>60) mL/min BUN/Creatinine Ratio 27.0 H (6-22) Glucose 144 H (70-99) mg/dL Lactate 0.8 (0.7-2.1) mmol/L Calcium 8.7 (8.4-10.2) mg/dL Total Bilirubin 0.5 (0.2-1.3) mg/dL AST 43 H (14-36) IU/L ALT 40 H (<35) IU/L Alkaline Phosphatase 195 H D (38-126) U/L Total Protein 7.4 (6.3-8.2) g/dL Albumin 3.7 (3.5-5.0) g/dL Globulin 3.7 (1.7-4.1) g/dL Albumin/Globulin Ratio 1.0 (1.0-2.8) Lipase 276 (23-300) U/L Urine RBC 5-10/hpf H (0-5/HPF) Urine WBC 30-100/hpf H (0-5/HPF) Ur Squamous Epith Cells 1-5 /hpf (0-5/HPF) Urine Bacteria Many (>30) H (None) Ur Culture Indicated? Specimen cultured Vol Urine Centrifuged 10ml (spun) Urine Dip Bedside Urine Glucose Negative Bedside Urine Bilirubin - Negative Bedside Urine Ketone +/- 5 Urine Specific [place] 1.010 Bedside Urine Occult Blood +++ Bedside Urine pH 6.0 Bedside Urine Protein + 30 Bedside Urine Urobilinogen - Negative Bedside Urine Nitrite + Positive Bedside Urine Leukocytes +++ 500 Esterase MDM Narrative Medical decision making narrative: 54-year-old female, daily smoker with past medical history hypothyroidism, hyperlipidemia, GERD, nephrolithiasis presents to the ED with 1 week of fevers. Concern for nephrolithiasis versus UTI versus sepsis versus other. Will obtain labs, UA, CT abdomen pelvis. Will reassess. WBC elevated to 14.1. Patient triggered sepsis on account of the elevated WBC and tachycardia. UA was positive for a UTI with urine RBC 5-10, urine WBC 30-100, positive leukocyte esterase, positive nitrites. Sepsis fluids, IV antibiotics initiated. CT abdomen pelvis shows interval passing of previously noted right UVJ stone with interval resolution of previously noted right-sided hydronephrosis and hydroureter. No obstructing renal stones or hydronephrosis seen on today's study. Right-sided nonobstructing renal stones and simple appearing bilateral renal cysts are unchanged from prior study. Normal-appearing urinary bladder. Patient's symptoms improved with IV antibiotics and fluids. Will discharge patient home with p.o. antibiotics. Recommend follow-up with PCP as soon as possible. ED return precautions discussed with patient. Patient verbalized understanding. Medical records reviewed: Yes <Haylie Maharaj, - Last Filed: 05/23/25 16:08> Lab Data Labs: Lab Results 05/23/25 05/23/25 Range/Units 12:56 13:50 WBC 14.1 H (4.5-11.0) X10^3/uL RBC 3.68 L (4.0-5.2) X10^6/uL Hgb 12.5 (12.0-16.0) g/dL Hct 36.0 (36-46) % MCV 97.7 (80-100) fL MCH 34.0 (26-34) PG MCHC 34.7 (30-36) % RDW 13.4 (11.6-14.8) % Plt Count 331 (150-400) X10^3/uL Neut % (Auto) 84.9 H (50-75) % Lymph % (Auto) 8.0 L (25-40) % [place] % (Auto) 5.6 (3-14) % Eos % (Auto) 1.0 L (2-4) % Baso % (Auto) 0.5 (0-2) % Neut # (Auto) 49497 H (6842-0881) /uL Lymph # (Auto) 1100 (6880-4737) /uL [place] # (Auto) 800 (0-900) /uL Eos # (Auto) 100 (0-450) /uL Baso # (Auto) 100 (0-100) /uL Sodium 135 L (137-145) mmol/L Potassium 4.1 (3.4-5.1) mmol/L Chloride 101 (98-107) mmol/L Carbon Dioxide 27 (22-32) mmol/L BUN 24 H (7-17) mg/dL Creatinine 0.89 (0.52-1.04) mg/dL Estimated GFR > 60 (>60) mL/min BUN/Creatinine Ratio 27.0 H (6-22) Glucose 144 H (70-99) mg/dL Lactate 0.8 (0.7-2.1) mmol/L Calcium 8.7 (8.4-10.2) mg/dL Total Bilirubin 0.5 (0.2-1.3) mg/dL AST 43 H (14-36) IU/L ALT 40 H (<35) IU/L Alkaline Phosphatase 195 H D (38-126) U/L Total Protein 7.4 (6.3-8.2) g/dL Albumin 3.7 (3.5-5.0) g/dL Globulin 3.7 (1.7-4.1) g/dL Albumin/Globulin Ratio 1.0 (1.0-2.8) Lipase 276 (23-300) U/L Urine RBC 5-10/hpf H (0-5/HPF) Urine WBC 30-100/hpf H (0-5/HPF) Ur Squamous Epith Cells 1-5 /hpf (0-5/HPF) Urine Bacteria Many (>30) H (None) Ur Culture Indicated? Specimen cultured Vol Urine Centrifuged 10ml (spun) Urine Dip Bedside Urine Glucose Negative Bedside Urine Bilirubin - Negative Bedside Urine Ketone +/- 5 Urine Specific [place] 1.010 Bedside Urine Occult Blood +++ Bedside Urine pH 6.0 Bedside Urine Protein + 30 Bedside Urine Urobilinogen - Negative Bedside Urine Nitrite + Positive Bedside Urine Leukocytes +++ 500 Esterase Discharge Plan Departure Patient Disposition: Home Clinical Impression: UTI (urinary tract infection) Qualifiers: Urinary tract infection type: site unspecified Hematuria presence: with hematuria Qualified Code(s): N39.0 - Urinary tract infection, site not specified Instructions: DI for Urinary Tract Infection (UTI) Activity Restrictions/Additional Instructions: You were evaluated in the emergency department today for fever and a kidney stone. The CT scan shows that the kidney stone that you were diagnosed with a few days ago has already passed, which is reassuring. Your urine did still test positive for a urinary tract infection. You were given some IV fluids and IV antibiotics in the ED today. You are being sent home with a prescription for oral antibiotics to continue taking for the next 10 days. Please follow-up with your PCP as soon as possible. Return to the emergency department if you have worsening symptoms. Prescriptions: New sulfamethoxazole-trimethoprim [Bactrim DS] 800-160 mg tablet 1 tab PO Q12H 10 Days Qty: 20 0RF No Action azelastine 205.5 mcg (0.15 %) spray,non-aerosol 2 spray intranasal BID Qty: 30 1RF Rx Instructions: administer into each nostril sodium,potassium,mag sulfates [Suprep Bowel Prep Kit] 17.5-3.13-1.6 gram recon soln See Rx Instructions PO .COMPLEX Qty: 354 0RF Rx Instructions: take as directed by Physician nicotine 21 mg/24 hr patch 24 hour 1 patch transdermal DAILY Qty: 28 0RF diclofenac sodium 75 mg tablet,delayed release (DR/EC) 75 mg PO BID Qty: 60 2RF pantoprazole 20 mg tablet,delayed release (DR/EC) 20 mg PO DAILY Qty: 30 1RF tamsulosin [Flomax] 0.4 mg capsule 0.4 mg PO DAILY Qty: 14 0RF acetaminophen [Tylenol Arthritis Pain] 650 mg tablet extended release 650 mg PO Q12H fluticasone propionate [Flonase Allergy Relief] 50 mcg/actuation spray,suspension 2 spray intranasal DAILY Rx Instructions: administer into each nostril cetirizine [Zyrtec] 10 mg tablet 10 mg PO BID PRN cyclobenzaprine 5 mg tablet 5 mg PO TID PRN (Reason: muscle spasm) Qty: 30 0RF bupropion HCl [Wellbutrin SR] 150 mg tablet sustained-release 12 hr 150 mg PO BID 84 Days Qty: 168 3RF cyanocobalamin (vitamin B-12) [Vitamin B-12] 1,000 mcg Tablet 1,000 mcg PO BEDTIME magnesium glycinate 100 mg Tablet 200 mg PO DAILY melatonin 10 mg Tablet 10 mg PO BEDTIME PRN (Reason: Sleep) naproxen [Naprosyn] 500 mg tablet 500 mg PO BID PRN (Reason: pain) Qty: 20 0RF ondansetron 4 mg tablet,disintegrating 4 mg PO Q8H PRN (Reason: nausea and vomiting) Qty: 14 0RF cefdinir 300 mg capsule 300 mg PO BID Qty: 10 0RF albuterol sulfate 90 mcg/actuation HFA aerosol inhaler 2 puff inhalation QID PRN (Reason: shortness of breath or wheezing) Qty: 6.7 3RF Stiolto Respimat 2.5-2.5 mcg/actuation mist 2 puff inhalation DAILY Qty: 4 6RF Referrals: Kathryn Gutierrez, [employer]-[facility] [Primary Care Provider, Family Practice] Stand Alone Forms: Patient Portal/API ED Sign-out <Haylie Maharaj DO - Last Filed: 05/23/25 16:08> Cosign ED Attending Cosignature Attestation: I was immediately available in the department for consultation. Sepsis Evaluation (ED) <Italia Frausto PA-C - Last Filed: 05/23/25 15:52> Level 2 - SIRS Sepsis SIRS Criteria Present: WBC < 4k or > 12k or Bands > 10% and Pulse > 90 bpm Response It is my opinion that this patient have a likely infectious etiology for meeting sepsis criteria: Does Fluid calculation based on 30 mL/kg within 1hr of criteria: ABW used Antibiotics initiated within 1 hr of Sepis dx: Yes Tissue Perfusion Reassessed within 6 hrs of infusion start time: Yes Date of Tissue Perfusion Reassessment completed: 05/23/25 Time Tissue Perfusion Reassessment completed: 15:52
[2025-05-23 13:03] LABS: Add Manual Diff / Slide Review NO; Hematocrit 36.0 % (36-46); Hemoglobin 12.5 g/dL (12.0-16.0); Lymphocytes Absolute Auto 1100 /uL (1100-4500); Mean Corpuscular HGB Conc 34.7 % (30-36); Mean Corpuscular Hemoglobin 34.0 PG (26-34); Mean Corpuscular Volume 97.7 fL (80-100); Platelet Count 331 X10^3/uL (150-400)
[2025-05-23 13:19] LABS: Alanine Aminotransferase 40 IU/L (<35); Albumin 3.7 g/dL (3.5-5.0); Albumin Globulin Ratio 1.0 (1.0-2.8); Alkaline Phosphatase 195 U/L (38-126); Blood Urea Nitrogen 24 mg/dL (7-17); Calcium 8.7 mg/dL (8.4-10.2); Carbon Dioxide 27 mmol/L (22-32); Chloride 101 mmol/L (98-107); Estimated Glomerular Filt Rate > 60 mL/min (>60); Globulin 3.7 g/dL (1.7-4.1); Glucose 144 mg/dL (70-99); HEMOLYSIS < 15 (0-50); Lactate (Lactic Acid) 0.8 mmol/L (0.7-2.1); Lipase 276 U/L (23-300); Potassium 4.1 mmol/L (3.4-5.1); Sodium 135 mmol/L (137-145); Total Protein 7.4 g/dL (6.3-8.2)
[2025-05-23 13:59] LABS: Culture Indicated Urine Specimen Cultured
[2025-05-23] MEDS: SODIUM CHLORIDE 0.9% 1524.08 ML IV (14:29)
[2025-05-23 14:31] VITALS: BP 131/88; PULSE 92; RESP 16; TEMP 37.2; O2SAT 98
--- NOTE | 2025-05-23 15:48 | PC.NURSE ---
Per Provider Jett, patient does not need to complete fluid bolus, 1L is ok.
== END 2025-05-23 16:11 | disposition home or self-care (01) ==
PROVIDERS: Emergency Provider Student in an Organized Health Care Education/Training Program; PCP Nurse Practitioner Family
DX: N39.0 Urinary tract infection, site not specified (principal); N20.0 Calculus of kidney
CPT/HCPCS: 36415; 74177; 80053; 81003; 81015; 83605; 83690; 85025; 87040; 87077; 87086; 87186; 96365; 99284; J0696; J7030; J7050; Q9967

== ENCOUNTER → 2025-05-26 11:08 | Outpatient (CLI) | payer OTHER, SELFPAY ==
[2023-02-21 08:08] VITALS: BMI 21.0
[2025-05-26 12:24] LABS: Add Manual Diff / Slide Review NO; Hematocrit 37.4 % (36-46); Hemoglobin 13.1 g/dL (12.0-16.0); Lymphocytes Absolute Auto 1400 /uL (1100-4500); Mean Corpuscular HGB Conc 35.0 % (30-36); Mean Corpuscular Hemoglobin 34.5 PG (26-34); Mean Corpuscular Volume 98.4 fL (80-100); Platelet Count 386 X10^3/uL (150-400)
[2025-05-26 12:34] LABS: Alanine Aminotransferase 32 IU/L (<35); Albumin 3.8 g/dL (3.5-5.0); Albumin Globulin Ratio 1.1 (1.0-2.8); Alkaline Phosphatase 193 U/L (38-126); Blood Urea Nitrogen 15 mg/dL (7-17); Calcium 9.4 mg/dL (8.4-10.2); Carbon Dioxide 26 mmol/L (22-32); Chloride 101 mmol/L (98-107); Estimated Glomerular Filt Rate > 60 mL/min (>60); Globulin 3.5 g/dL (1.7-4.1); Glucose 84 mg/dL (70-99); HEMOLYSIS < 15 (0-50); Potassium 5.0 mmol/L (3.4-5.1); Sodium 135 mmol/L (137-145); Total Protein 7.3 g/dL (6.3-8.2); Uric Acid 3.7 mg/dL (2.5-6.2)
== END ==
PROVIDERS: PCP Nurse Practitioner Family; Referring Provider Nurse Practitioner Family; Visit Provider Nurse Practitioner Family
DX: L29.9 Pruritus, unspecified (principal); N39.0 Urinary tract infection, site not specified; R31.9 Hematuria, unspecified; N20.0 Calculus of kidney; D72.829 Elevated white blood cell count, unspecified; R79.89 Other specified abnormal findings of blood chemistry
CPT/HCPCS: 36415; 80053; 84550; 85025; 87210